=== PATIENT | male | born 1950 | race Hispanic/Latino ===

== ENCOUNTER → 2019-06-14 | Outpatient (CLI) | payer MEDICARE | END | disposition home or self-care (01) | LOC: RAH 09:44 | PROVIDERS: ATTEND Internal Medicine | DX: I35.8 Other nonrheumatic aortic valve disorders (principal) | CPT/HCPCS: 93306 ==

== ENCOUNTER → 2021-03-06 | Outpatient (CLI) | payer MEDICARE | END | disposition home or self-care (01) | LOC: RAH 11:27 | PROVIDERS: ATTEND Internal Medicine | DX: R60.0 Localized edema (principal); N50.89 Other specified disorders of the male genital organs; N43.3 Hydrocele, unspecified; I86.1 Scrotal varices | CPT/HCPCS: 76870 ==

== ENCOUNTER 2024-02-16 07:18 | Emergency (ER) | payer MEDICARE ==
[~2024-02-16] VITALS: Ht 175.3 cm; Wt 77.1 kg
[2024-02-16 08:08] LABS: BASOPHILS # (AUTO) 0.03 K/uL (0.00-0.20); BASOPHILS % (AUTO) 0.4 % (0.0-5.0); EOSINOPHILS # (AUTO) 0.47 K/uL (0.00-0.70); EOSINOPHILS % (AUTO) 6.7 % (0.0-8.0); HEMATOCRIT 34.9 % (42-54); IMMATURE GRANULOCYTE ABSOLUTE 0.05 K/uL (0-1); LYMPHOCYTES # (AUTO) 1.4 K/uL (1.0-4.8); MEAN CORPUSCULAR HEMOGLOBIN 30.1 pg (27.0-33.0); MEAN CORPUSCULAR HGB CONC 33.2 g/dL (32.0-36.0); MEAN CORPUSCULAR VOLUME 90.6 fL (79-99); MONOCYTES # (AUTO) 0.6 K/uL (0.1-1.0); MONOCYTES % (AUTO) 8.9 % (3.0-13.0); NEUTROPHILS # (AUTO) 4.5 K/uL (1.8-7.7); NEUTROPHILS % (AUTO) 63.3 % (40.0-77.0); PLATELET COUNT (AUTO) 293 K/uL (130-400); RED BLOOD CELL COUNT(AUTO) 3.85 MIL/uL (4.50-6.20); RED CELL DISTRIBUTION WIDTH 13.6 % (11.0-15.5); WHITE BLOOD COUNT (AUTO) 7.1 K/uL (4.8-10.8)
[2024-02-16 08:19] LABS: CREATININE 1.4 mg/dL (0.5-1.3)
[2024-02-16 08:24] LABS: ALBUMIN 3.5 g/dL (3.5-5.0); BILIRUBIN,TOTAL 0.4 mg/dL (0.2-1.0); TOTAL PROTEIN, SERUM 7.6 g/dL (6.0-8.3)
[2024-02-16 13:55] LABS: APPEARANCE,URINE CLEAR (CLEAR); BILIRUBIN,URINE NEGATIVE (NEGATIVE); COLOR,URINE LIGHT-YELLOW (YELLOW); GLUCOSE, URINE (UA) NEGATIVE (NEGATIVE); KETONES,URINE NEGATIVE (NEGATIVE); LEUKOCYTE ESTERASE ,URINE NEGATIVE Leu/uL (NEGATIVE); NITRATE,URINE NEGATIVE (NEGATIVE); OCCULT BLOOD,URINE NEGATIVE (NEGATIVE); PROTEIN,URINE NEGATIVE (NEGATIVE); UROBILINOGEN,URINE 0.2 mg/dL (0.2-1.0)
[2024-02-16 14:23] LABS: ADD UA MICROSCOPIC NO
[2024-02-16 14:52] VITALS: BP 150/60; PULSE 53; RESP 16; O2SAT 99
== END 2024-02-16 15:26 | disposition home or self-care (01) ==
LOC: EDH 07:18
DX: G30.9 Alzheimer's disease, unspecified (principal); F02.80 Dementia in other diseases classified elsewhere, unspecified severity, without behavioral disturbance, psychotic disturbance, mood disturbance, and anxiety; E11.9 Type 2 diabetes mellitus without complications; I10 Essential (primary) hypertension; Z88.0 Allergy status to penicillin
CPT/HCPCS: 36415; 70450; 72125; 73030; 73522; 80053; 81003; 85025

== ENCOUNTER 2024-09-28 10:03 | Emergency (ER) | payer MEDICARE ==
[~2024-09-28] VITALS: Ht 170.2 cm; Wt 72.6 kg
--- NOTE | 2024-09-28 10:29 | ERN ---
General Chief Complaint: Abdominal Pain Stated Complaint: ABDOMINAL PAIN Time Seen by MD: 10:05 History of Present Illness Initial Comments 74-year-old male with history of Alzheimer's presents to the via EMS for evaluation of right lower abdominal pain onset today. Patient was sent from [facility]. Patient is a poor historian. Allergies: Coded Allergies: Penicillins (Unverified Allergy, Unknown, 02/12/24) Past Medical History Past Medical History: Dementia, Diabetes-Type II, Hypertension, Other Medical History Other: ALZHEIMERS Past Surgical History: Unknown ROS Dictation Constitutional: Negative for fever,chills, and weight loss Eyes: Negative for injury, pain,redness, and discharge ENT: Negative for injury,pain or swelling Cardiovascular: Negative for chest pain, palpitations, and edema Respiratory: Negative for shortness of breath, cough, and wheezing, Abdomen/GI: Positive for abdominal pain negative for nausea, vomiting, diarrhea, and constipation Back: Negative for injury and pain : Negative for injury, bleeding and discharge MS/Extremity: Negative for injury and deformity Skin: Negative for rash, and discoloration Physical Exam Physical Exam Dictation General: awake, alert, NAD Head/Face: Normocephalic, atraumatic Eyes: PERRL, EOMI, vision at baseline ENT: oral cavity clear, TMs clear, no signs of infection Neck: Trachea midline, supple, no nuchal rigidity Cardiovascular: RRR, normal S1/S2, No MRGs, no JVD Respiratory: CTAB, no respiratory distress, No rales or wheezes Abdomen: Soft, low abdominal tenderness, non-distended, normal bowel sounds, no guarding or rebound. Skin: Warm, dry, normal turgor, no rash MS/Extremity: Pulses equal, no cyanosis, neurovascular intact, FROM Results Laboratory and Microbiology Lab and Micro Result Laboratory Tests Test 09/28/24 10:42 09/28/24 12:47 White Blood Count 5.2 K/uL (4.8-10.8) Red Blood Count 3.92 MIL/uL (4.50-6.20) L Hemoglobin 11.8 g/dL (14.0-18.0) L Hematocrit 35.5 % (42-54) L Mean Corpuscular Volume 90.6 fL (79-99) Mean Corpuscular Hemoglobin 30.1 pg (27.0-33.0) Mean Corpuscular Hemoglobin Concent 33.2 g/dL (32.0-36.0) Red Cell Distribution Width 14.0 % (11.0-15.5) Platelet Count 214 K/uL (130-400) Mean Platelet Volume 10.1 fL (7.5-10.5) Immature Granulocyte % (Auto) 0.2 % (0-1) Neutrophils (%) (Auto) 49.2 % (40.0-77.0) Lymphocytes (%) (Auto) 31.3 % (21.0-51.0) Monocytes (%) (Auto) 8.1 % (3.0-13.0) Eosinophils (%) (Auto) 10.6 % (0.0-8.0) H Basophils (%) (Auto) 0.6 % (0.0-5.0) Neutrophils # (Auto) 2.6 K/uL (1.8-7.7) Lymphocytes # (Auto) 1.6 K/uL (1.0-4.8) Monocytes # (Auto) 0.4 K/uL (0.1-1.0) Eosinophils # (Auto) 0.55 K/uL (0.00-0.70) Basophils # (Auto) 0.03 K/uL (0.00-0.20) Absolute Immature Granulocyte (auto 0.01 K/uL (0-1) Nucleated Red Blood Cells 0.0 % (0.0-0.19) Sodium Level 144 mmol/L (136-145) Potassium Level 4.3 mmol/L (3.5-5.1) Chloride Level 105 mmol/L (101-111) Carbon Dioxide Level 32 mmol/L (21-32) Blood Urea Nitrogen 17 mg/dL (7-18) Creatinine 1.3 mg/dL (0.5-1.3) Glomerular Filtration Rate Calc 57 mL/min (>90) Random Glucose 90 mg/dL (70-105) Total Calcium 9.2 mg/dL (8.5-10.1) Total Bilirubin 0.5 mg/dL (0.2-1.0) Aspartate Amino Transf (AST/SGOT) 12 U/L (10-37) Alanine Aminotransferase (ALT/SGPT) 11 U/L (12-78) L Alkaline Phosphatase 57 U/L (50-136) Total Creatine Kinase 45 U/L (21-232) # Troponin I High Sensitivity 11 ng/L (4-75) Total Protein 7.1 g/dL (6.0-8.3) Albumin 3.8 g/dL (3.5-5.0) Lipase 38 U/L (16-77) Urine Color COLORLESS (YELLOW) Urine Appearance CLEAR (CLEAR) Urine pH 6.5 (5.0-8.0) Urine Specific [place] 1.008 (1.001-1.031) Urine Protein NEGATIVE mg/dL (NEGATIVE) Urine Glucose (UA) NEGATIVE mg/dL (NEGATIVE) Urine Ketones NEGATIVE mg/dL (NEGATIVE) Urine Occult Blood NEGATIVE (NEGATIVE) Urine Nitrate NEGATIVE (NEGATIVE) Urine Bilirubin NEGATIVE mg/dL (NEGATIVE) Urine Urobilinogen 0.2 mg/dL (0.2-1.0) Urine Leukocyte Esterase NEGATIVE Mk/uL Labs Reviewed?: Yes EKG/XRAY/US/CT/MRI EKG Comment EKG 09/28/2024 time 10:37 a.m. ventricular rate 50, sinus rhythm, ventricular premature complex, prolonged MO interval, inferior infarct old, anterior infarct old. No STEMI MDM MDM: Differential diagnosis: Abdominal pain constipation Previous outside records reviewed: Old ER visits. Need for hospitalization: Patient does not meet criteria for hospitalization. Need for emergency major/minor surgery: No Patient's prior external medical records from other ER visits were reviewed by me as indicated. Prior testing and results from previous visits were reviewed. Prior tests were taken into account with medical decision making and resource utilization, independent historian/historians were used to obtain complete medical history. I independently interpreted the test that were performed, results were reviewed by me and considered findings on radiology if ordered. Medical management and examination interpretation discussions were had by me with other qualified healthcare professionals as indicated for the patient's care. Family reports patient has history of constipation but mentioned that patient had a bowel movement here at the ED since he is on lactulose. ED Course Orders Procedure Category Date Status Time Cbc With Differential LAB 09/28/24 Complete 10:23 Comprehensive LAB 09/28/24 Complete Metabolic Panel 10:23 Troponin I High LAB 09/28/24 Complete Sensitivity 10:23 Urinalysis Profile LAB 09/28/24 Complete 10:23 12 Lead Ekg Tracing- EKG 09/28/24 Complete Technical 10:23 Lactated Ringers PHA 09/28/24 Complete 1000ml (Lactated 10:30 Ondansetron 4mg Inj PHA 09/28/24 Complete (Zofran 4mg Inj) 10:30 Pantoprazole 40mg Inj PHA 09/28/24 Complete (Protonix 40mg Inj 10:30 Creatine Kinase, Total LAB 09/28/24 Complete 10:23 Lipase LAB 09/28/24 Complete 10:23 Current Medications Medications (Trade) Dose Ordered Sig/Margarito Route PRN Reason Start Time Stop Time Status Last Admin Dose Admin Lactated Ringer's 1,000 ml @ 0 mls/hr ONCE ONCE IV 09/28/24 10:30 09/28/24 10:31 DC 09/28/24 11:11 Ondansetron HCl (zoFRAN 4MG INJ) 4 mg ONCE ONCE IVP 09/28/24 10:30 09/28/24 10:31 DC 09/28/24 11:10 Pantoprazole Sodium (PROTonix 40MG INJ) 40 mg ONCE ONCE IVP 09/28/24 10:30 09/28/24 10:31 DC 09/28/24 11:10 Vital Signs Date Time Temp Pulse Resp B/P (MAP) Pulse Ox O2 Delivery O2 Flow Rate FiO2 09/28/24 13:18 98.2 77 20 145/65 100 Room Air* 0 09/28/24 12:20 98.4 71 20 150/66 100 Room Air* 0 09/28/24 11:15 98.1 68 20 152/57 100 Room Air* 0 09/28/24 10:05 98.6 66 17 157/87 96 Room Air 0 HEART Score Response (Comments) Value History: Low suspicion (0) 0 EKG: Normal 0 Age: > 65yrs (+2) 2 Risk Factors: 1-2 risk factors (+1) 1 Initial Troponin: Normal limit (0) 0 HEART Score Risk: Low Risk for MACE (1-3) Total 3 DX & DISP Disposition: Discharge Departure Impression: Primary Impression: Constipation Condition: Stable Additional Instructions: FOLLOW-UP WITH PRIMARY CARE PROVIDER IN 1 TO 2 DAYS. TAKE MEDICATIONS DIRECTED HERE IN THE EMERGENCY ROOM. OKAY TO CONTINUE HOME MEDICATIONS UNLESS OTHERWISE DISCUSSED DURING YOUR VISIT IN THE EMERGENCY ROOM TODAY. RETURN TO YOUR NEAREST EMERGENCY ROOM IF SYMPTOMS WORSEN OR IF THERE IS NO IMPROVEMENT. CALL 911 IF YOU NEED IMMEDIATE ASSISTANCE. TAKE TYLENOL [id number] NEEDED AND IF NO CONTRAINDICATIONS ARE PRESENT. INCREASE ORAL HYDRATION. A WOUND CULTURE OR URINE CULTURE WAS ORDERED HERE IN THE EMERGENCY ROOM DEPARTMENT PLEASE FOLLOW-UP WITH PRIMARY CARE PROVIDER AND ADVISE THEM TO GET REPEAT PORTS FROM OUR FACILITY. IF YOU HAD ANY RAVI WRAP/SPLINTS THAT WERE APPLIED HERE, PLEASE DO NOT REMOVE THEM UNTIL YOU SEE YOUR PRIMARY CARE OR SPECIALTY. Referrals: Referrals: YORDAN VENEGAS (PCP) Time of Disposition: 13:09 I have reviewed, & agreed with my scribe's, documentation. (Entered by Dave Colvin, acting as a scribe for Dr. Da Silva) I personally scribed for BEBE DA SILVA MD (TOMÁS) on 09/28/24 at 10:29. Electronically submitted by Dave Colvin ([employer]). I personally scribed for BEBE DA SILVA MD (TOMÁS) on 09/28/24 at 11:28. Electronically submitted by Dave Colvin ([employer]). I personally scribed for BEBE DA SILVA MD (TOMÁS) on 09/28/24 at 13:10. Electronically submitted by Dave Colvin ([employer]). BEBE DA SILVA MD Sep 28, 2024 10:29
[2024-09-28 10:49] LABS: BASOPHILS # (AUTO) 0.03 K/uL (0.00-0.20); BASOPHILS % (AUTO) 0.6 % (0.0-5.0); EOSINOPHILS # (AUTO) 0.55 K/uL (0.00-0.70); EOSINOPHILS % (AUTO) 10.6 % (0.0-8.0); HEMATOCRIT 35.5 % (42-54); IMMATURE GRANULOCYTE ABSOLUTE 0.01 K/uL (0-1); LYMPHOCYTES # (AUTO) 1.6 K/uL (1.0-4.8); LYMPHOCYTES % (AUTO) 31.3 % (21.0-51.0); MEAN CORPUSCULAR HEMOGLOBIN 30.1 pg (27.0-33.0); MEAN CORPUSCULAR HGB CONC 33.2 g/dL (32.0-36.0); MEAN CORPUSCULAR VOLUME 90.6 fL (79-99); MONOCYTES # (AUTO) 0.4 K/uL (0.1-1.0); MONOCYTES % (AUTO) 8.1 % (3.0-13.0); NEUTROPHILS # (AUTO) 2.6 K/uL (1.8-7.7); NEUTROPHILS % (AUTO) 49.2 % (40.0-77.0); PLATELET COUNT (AUTO) 214 K/uL (130-400); RED BLOOD CELL COUNT(AUTO) 3.92 MIL/uL (4.50-6.20); WHITE BLOOD COUNT (AUTO) 5.2 K/uL (4.8-10.8)
[2024-09-28 10:59] LABS: CREATININE 1.3 mg/dL (0.5-1.3); POTASSIUM 4.3 mmol/L (3.5-5.1)
[2024-09-28 11:04] LABS: ALBUMIN 3.8 g/dL (3.5-5.0); BILIRUBIN,TOTAL 0.5 mg/dL (0.2-1.0); TOTAL PROTEIN, SERUM 7.1 g/dL (6.0-8.3)
[2024-09-28] MEDS: PANTOPrazole 40 MG/VIAL IVP ONE (11:10)
[2024-09-28] MEDS: ondanSETRON 4MG INJ IVP ONE (11:10)
[2024-09-28] MEDS: LACTATED RINGERS 1000ML 1,000 ML IV ONE (11:11)
--- NOTE | 2024-09-28 12:37 | EKG ---
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
[2024-09-28 13:05] LABS: APPEARANCE,URINE CLEAR (CLEAR); BILIRUBIN,URINE NEGATIVE (NEGATIVE); COLOR,URINE COLORLESS (YELLOW); GLUCOSE, URINE (UA) NEGATIVE (NEGATIVE); KETONES,URINE NEGATIVE (NEGATIVE); LEUKOCYTE ESTERASE ,URINE NEGATIVE Leu/uL (NEGATIVE); NITRATE,URINE NEGATIVE (NEGATIVE); OCCULT BLOOD,URINE NEGATIVE (NEGATIVE); PH,URINE 6.5 (5.0-8.0); PROTEIN,URINE NEGATIVE (NEGATIVE); UROBILINOGEN,URINE 0.2 mg/dL (0.2-1.0)
[2024-09-28 13:06] LABS: ADD UA MICROSCOPIC NO
[2024-09-28 13:18] VITALS: BP 145/65; PULSE 77; RESP 20; TEMP 98.2; O2SAT 100
== END 2024-09-28 13:31 | disposition home or self-care (01) ==
LOC: EDH 10:03
DX: K59.00 Constipation, unspecified (principal); F02.80 Dementia in other diseases classified elsewhere, unspecified severity, without behavioral disturbance, psychotic disturbance, mood disturbance, and anxiety; E11.9 Type 2 diabetes mellitus without complications; I10 Essential (primary) hypertension; Z88.0 Allergy status to penicillin
CPT/HCPCS: 99284; 96374; 96375; 82550; 84484; 80053; 83690; 85025; 81003; 36415; 93005; J7120; J2405; J2470

== ENCOUNTER → 2025-02-21 | Outpatient (CLI) | payer MEDICARE ==
--- NOTE | 2025-02-21 12:07 | HMCIMG ---
US ABDOMINAL COMPLETE HISTORY: Abdominal pain COMPARISON: None TECHNIQUE: Multiple transverse and longitudinal ultrasound images of the abdomen were obtained. FINDINGS: There is infrarenal abdominal aortic aneurysm measuring 2.8 x 3.4 x 2.8 cm. Abdominal aorta and inferior vena cava are unremarkable. The study is limited due to overlying bowel gas. Pancreas is not well seen. Liver measured 12.9 cm. No gallstone is seen. Common duct measures 5 mm. No evidence of gallbladder wall thickening is seen. Both kidneys are seen. Right kidney measures 9.8 x 4.2 x 3.5 cm. Left kidney measures 9.8 x 4.8 x 4.8 cm. No hydronephrosis is seen of the both kidneys. The spleen is grossly unremarkable. IMPRESSION: 1. No gallstone or ductal dilatation is seen. 2. No hydronephrosis is seen. 3. There is infrarenal abdominal aortic aneurysm measuring 2.8 x 3.4 x 2.8 cm.
== END | disposition home or self-care (01) ==
LOC: RAH 10:02
PROVIDERS: ATTEND Family Medicine
DX: I71.43 Infrarenal abdominal aortic aneurysm, without rupture (principal); K76.89 Other specified diseases of liver; R10.84 Generalized abdominal pain
CPT/HCPCS: 76700

== ENCOUNTER 2025-03-01 14:23 | Observation (INO) | payer MEDICARE ==
[~2025-03-01] VITALS: Ht 157.5 cm; Wt 80.7 kg
--- NOTE | 2025-03-01 14:45 | EKG ---
[facility] Test Date: 2025-03-01 Test Time: 14:42:25 Pat Name: JEFF GOMEZ Department: 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: [id number] : 1950 Requested By: BEBE BEAR Order Number: [id number] Reading MD: Dee Covarrubias Measurements Intervals [place] Rate: 53 P: 139 IA: 264 QRS: 121 QRSD: 111 T: 40 QT: 458 QTc: 422 Interpretive Statements Sinus or ectopic atrial rhythm Ventricular premature complex Prolonged IA interval Low voltage, precordial leads Probable anteroseptal infarct, old Compared to ECG 09/28/2024 10:37:49 Ectopic atrial rhythm now present Low QRS voltage now present Sinus rhythm no longer present Myocardial infarct finding still present Electronically Signed On 03-04-2025 09:32:29 CDT by Dee Covarrubias Please click the below link to view image of tracing.
--- NOTE | 2025-03-01 14:51 | ERN ---
General Chief Complaint: Mechanical Fall Stated Complaint: FALL Time Seen by MD: 14:27 Source: patient, EMS History of Present Illness Initial Comments This is a 74-year-old male coming in to be evaluated after he was found in the floor. Per EMS patient has a history of Alzheimer's and was found the floor earlier today. Patient states that he does have elbow pain otherwise un remarkable. He is a poor historian secondary to Alzheimer's. Allergies: Coded Allergies: Penicillins (Unverified Allergy, Unknown, 02/12/24) Past Medical History Past Medical History: Dementia, Diabetes-Type II, Hypertension Medical History Other: ALZHEIMERS Past Surgical History: Unknown ROS Dictation Limited due to the dementia Physical Exam Physical Exam Dictation VITAL SIGNS: Reviewed. GENERAL APPEARANCE: Alert, oriented x3, no acute distress, obese. HEAD AND FACE: Non-traumatic. EYES: PERRL, pink conjunctivas, eyelid no trauma, anterior chamber clear. EARS: Pinnas intact and no signs of trauma or erythema. Ear canals clear and no discharge. TMs no erythema. NOSE: No discharge, no bleeding. OROPHARYNX: Mouth normal, teeth no caries, tongue pink. Pharynx clear, no erythema. Tonsils no exudates, no abscesses noted. Mucous membrane moist. NECK: Supple, non-tender, no thyromegaly, no masses, no JVD, no bruits. BREAST: Deferred. CHEST: No tenderness, no crepitus, no paradoxical movement, no retractions. LUNGS: Clear, well-ventilated, symmetric, no rales, no wheezing, no rhonchi, no stridor, good breath sounds bilaterally. HEART: Regular rate, regular rhythm, no murmur, no gallops. VASCULAR: No peripheral edema. ABDOMEN: Soft, positive bowel sounds, nondistended, no guarding, nontender, no rebound, no masses no hepatomegaly, no splenomegaly, no Gottlieb's sign, no hernias. RECTAL: Deferred. GENITAL: Deferred. NEUROLOGICAL: Normal speech, gross motor function intact, gross sensory function intact. MUSCULOSKELETAL: Neck nontender, full range of motion, back nontender, full range of motion. EXTREMITIES: Nontender, full range of motion. SKIN: Color pink, dry, no turgor, no rash, no lacerations, no abrasions, no contusions. LYMPHATICS: Deferred. Results Laboratory and Microbiology Lab and Micro Result Laboratory Tests Test 03/01/25 14:55 White Blood Count 5.4 K/uL (4.8-10.8) Red Blood Count 3.86 MIL/uL (4.50-6.20) L Hemoglobin 11.7 g/dL (14.0-18.0) L Hematocrit 36.6 % (42-54) L Mean Corpuscular Volume 94.8 fL (79-99) Mean Corpuscular Hemoglobin 30.3 pg (27.0-33.0) Mean Corpuscular Hemoglobin Concent 32.0 g/dL (32.0-36.0) Red Cell Distribution Width 14.3 % (11.0-15.5) Platelet Count 232 K/uL (130-400) Mean Platelet Volume 10.9 fL (7.5-10.5) H Immature Granulocyte % (Auto) 0.2 % (0-1) Neutrophils (%) (Auto) 48.8 % (40.0-77.0) Lymphocytes (%) (Auto) 32.5 % (21.0-51.0) Monocytes (%) (Auto) 8.7 % (3.0-13.0) Eosinophils (%) (Auto) 8.9 % (0.0-8.0) H Basophils (%) (Auto) 0.9 % (0.0-5.0) Neutrophils # (Auto) 2.6 K/uL (1.8-7.7) Lymphocytes # (Auto) 1.8 K/uL (1.0-4.8) Monocytes # (Auto) 0.5 K/uL (0.1-1.0) Eosinophils # (Auto) 0.48 K/uL (0.00-0.70) Basophils # (Auto) 0.05 K/uL (0.00-0.20) Absolute Immature Granulocyte (auto 0.01 K/uL (0-1) Nucleated Red Blood Cells 0.0 % (0.0-0.19) Prothrombin Time 10.7 SEC (9.6-11.6) Prothromb Time International Ratio 1.01 (0.85-1.15) Activated Partial Thromboplast Time 24.0 SEC (26.3-35.5) L Sodium Level 145 mmol/L (136-145) Potassium Level 4.5 mmol/L (3.5-5.1) Chloride Level 106 mmol/L (101-111) Carbon Dioxide Level 32 mmol/L (21-32) Blood Urea Nitrogen 21 mg/dL (7-18) H Creatinine 1.5 mg/dL (0.5-1.3) H Glomerular Filtration Rate Calc 48 mL/min (>90) Random Glucose 105 mg/dL (70-105) Total Calcium 9.4 mg/dL (8.5-10.1) Magnesium Level 2.10 mg/dL (1.80-2.40) Total Creatine Kinase 84 U/L (21-232) # Troponin I High Sensitivity 8 ng/L (4-75) B-Type Natriuretic Peptide 70 pg/mL (0-100) Labs Reviewed?: Yes EKG/XRAY/US/CT/MRI EKG Comment 03/01/2025 time 2:42 p.m. Ventricular rate [address] [place] [address] wave elevation or depression X-RAY Comment IMAGING REPORT Signed PATIENT: JEFF GOMEZ MR#: [id number] : 1950 SEX: M AGE: 74 LOCATION: [facility] ORDER 33 STATUS: REG REPORT#: [id number] SERVICE 31 REASON: SYNCOPE ORDERING PHYSICIAN: BEBE BEAR MD PROCEDURE: CXR1VW - CHEST 1VW PORTABLE CHEST RADIOGRAPH INDICATION: SYNCOPE COMPARISON: 02/12/2024 FINDINGS: Shallow inspiration. Heart size is normal. The pulmonary vascularity and julissa appear normal. No abnormal pulmonary parenchymal opacity or consolidation identified. No significant pleural effusion noted. No pneumothorax detected. IMPRESSION: Shallow inspiration without radiographic evidence for any acute cardiopulmonary process. DICTATED BY: IRVIN COLES MD DATE: 03/01/251500 ELECTRONICALLY SIGNED BY: IRVIN COLES MD DATE: 03/01/251503 CT Scan Comment [address] [place] [address], [place] [address] IMAGING REPORT Signed PATIENT: JEFF GOMEZ MR#: [id number] : 1950 SEX: M AGE: 74 LOCATION: [facility] ORDER 51 STATUS: REG ER REPORT#: [id number] SERVICE 1451 REASON: syncope ORDERING PHYSICIAN: BEBE BEAR MD PROCEDURE: HEAD WO - CT HEAD/BRAIN W/O CONTRAST CT HEAD WITHOUT CONTRAST INDICATION: Syncope TECHNIQUE: Noncontrast axial helical CT images from the vertex through the skull base using 5 mm slice thickness without contrast material. Coronal and sagittal reconstructions were also included. Dose reduction techniques was used using integrated, automated and adaptive dose reduction exposure control. CT was performed with one or more of the following dose reduction techniques: Automated exposure control, adjustment of the mA and/or kV according to patient size, or use of iterative reconstruction technique. COMPARISON: 02/16/24 FINDINGS: Scattered and coalescent subcortical and periventricular white matter low attenuating areas likely represent residual of chronic small vessel arteriopathy and/or remote vascular insult. Generalized mild cerebral cortical atrophy is present.. No evidence for abnormal extra-axial fluid collections or masses. The ventricles and sulci are normal in size and configuration. No evidence for intracranial parenchymal, epidural, or subdural hemorrhage, mass effect or midline shift. The dillon-white matter differentiation is well preserved. No secondary evidence to suggest acute ischemia. Mild calcific plaque is present along the murray of the cavernous segments of both internal carotid arteries. The brainstem and cerebellum appear normal. The visualized orbits appear unremarkable. The visible paranasal sinuses and mastoid air cells are clear. The calvarium appears normal. IMPRESSION: Chronic white matter ischemic changes, mild brain atrophy, and arteriosclerotic disease as described, without acute component. DICTATED BY: IRVIN COLES MD DATE: 03/01/251603 ELECTRONICALLY SIGNED BY: IRVIN COLES MD DATE: 03/01/25 160 MDM MDM: Differential diagnosis: Copy, fall, history of Alzheimer's, Rationale: Tests considered and ordered secondary to shared decision making inc lude: Previous outside records reviewed: Old ER visits. Risk of complication and/or morbidity or mortality of patient management: None Medications-Per medication reconciliation Need for hospitalization: Patient does meet criteria for hospitalization. Need for emergency major/minor surgery: No There are no social concerns with this patient. Prescription drug management Prescriptions will include symptomatic care Patient's prior external medical records from other ER visits were reviewed by me as indicated. Prior testing and results from previous visits were reviewed. Prior tests were taken into account with medical decision making and resource utilization, independent historian/historians were used to obtain complete medical history. I independently interpreted the test that were performed, results were reviewed by me and considered findings on radiology if ordered. Medical management and examination interpretation discussions were had by me with other qualified healthcare professionals as indicated for the patient's care. Patient will be admitted under the care of hospitalist group for ongoing management of syncope and collapse with the EKG changes. ED Course Orders Procedure Category Date Status Time Cbc With Differential LAB 03/01/25 Complete 14:32 Prothrombin Time With LAB 03/01/25 Complete INR 14:32 B-Type Natriuretic LAB 03/01/25 Complete Peptide 14:32 Chest 1vw RAD 03/01/25 Resulted 14:32 12 Lead Ekg Tracing- EKG 03/01/25 Complete Technical 14:32 Magnesium LAB 03/01/25 Complete 14:32 Creatine Kinase, Total LAB 03/01/25 Complete 14:32 Troponin I High LAB 03/01/25 Complete Sensitivity 14:32 Urinalysis Profile LAB 03/01/25 Logged 14:32 Partial LAB 03/01/25 Complete Thromboplastin Time 14:32 Basic Metabolic Panel LAB 03/01/25 Complete 14:32 Ct Head/Brain W/O CT 03/01/25 Resulted Contrast 14:51 Vital Signs Date Time Temp Pulse Resp B/P (MAP) Pulse Ox O2 Delivery O2 Flow Rate FiO2 03/01/25 15:15 97.9 52 16 153/57 100 Room Air* 0 21 03/01/25 14:24 98.1 62 16 153/77 99 Room Air 0 DX & DISP Disposition: Inpatient Decision to Admit Time: 16:35 Departure Impression: Primary Impression: Syncope and collapse Additional Impression: Acute electrocardiogram changes Condition: Stable Referrals: YORDAN VENEGAS (PCP) BEBE BEAR MD Mar 01, 2025 14:51
--- NOTE | 2025-03-01 15:04 | HMCIMG ---
PORTABLE CHEST RADIOGRAPH INDICATION: SYNCOPE COMPARISON: 02/12/2024 FINDINGS: Shallow inspiration. Heart size is normal. The pulmonary vascularity and julissa appear normal. No abnormal pulmonary parenchymal opacity or consolidation identified. No significant pleural effusion noted. No pneumothorax detected. IMPRESSION: Shallow inspiration without radiographic evidence for any acute cardiopulmonary process.
[2025-03-01 15:07] LABS: BASOPHILS # (AUTO) 0.05 K/uL (0.00-0.20); BASOPHILS % (AUTO) 0.9 % (0.0-5.0); EOSINOPHILS # (AUTO) 0.48 K/uL (0.00-0.70); EOSINOPHILS % (AUTO) 8.9 % (0.0-8.0); HEMATOCRIT 36.6 % (42-54); IMMATURE GRANULOCYTE ABSOLUTE 0.01 K/uL (0-1); LYMPHOCYTES # (AUTO) 1.8 K/uL (1.0-4.8); LYMPHOCYTES % (AUTO) 32.5 % (21.0-51.0); MEAN CORPUSCULAR HEMOGLOBIN 30.3 pg (27.0-33.0); MEAN CORPUSCULAR VOLUME 94.8 fL (79-99); MONOCYTES # (AUTO) 0.5 K/uL (0.1-1.0); MONOCYTES % (AUTO) 8.7 % (3.0-13.0); NEUTROPHILS # (AUTO) 2.6 K/uL (1.8-7.7); NEUTROPHILS % (AUTO) 48.8 % (40.0-77.0); PLATELET COUNT (AUTO) 232 K/uL (130-400); RED BLOOD CELL COUNT(AUTO) 3.86 MIL/uL (4.50-6.20); RED CELL DISTRIBUTION WIDTH 14.3 % (11.0-15.5); WHITE BLOOD COUNT (AUTO) 5.4 K/uL (4.8-10.8)
[2025-03-01 15:17] LABS: INR 1.01 (0.85-1.15); PROTHROMBIN TIME 10.7 SEC (9.6-11.6)
[2025-03-01 15:22] LABS: CREATININE 1.5 mg/dL (0.5-1.3); POTASSIUM 4.5 mmol/L (3.5-5.1)
[2025-03-01 15:25] LABS: B-TYPE NATRIURETIC PEPTIDE 70 pg/mL (0-100)
[2025-03-01 15:27] LABS: MAGNESIUM 2.1 mg/dL (1.80-2.40)
--- NOTE | 2025-03-01 16:07 | HMCIMG ---
CT HEAD WITHOUT CONTRAST INDICATION: Syncope TECHNIQUE: Noncontrast axial helical CT images from the vertex through the skull base using 5 mm slice thickness without contrast material. Coronal and sagittal reconstructions were also included. Dose reduction techniques was used using integrated, automated and adaptive dose reduction exposure control. CT was performed with one or more of the following dose reduction techniques: Automated exposure control, adjustment of the mA and/or kV according to patient size, or use of iterative reconstruction technique. COMPARISON: 02/16/24 FINDINGS: Scattered and coalescent subcortical and periventricular white matter low attenuating areas likely represent residual of chronic small vessel arteriopathy and/or remote vascular insult. Generalized mild cerebral cortical atrophy is present.. No evidence for abnormal extra-axial fluid collections or masses. The ventricles and sulci are normal in size and configuration. No evidence for intracranial parenchymal, epidural, or subdural hemorrhage, mass effect or midline shift. The dillon-white matter differentiation is well preserved. No secondary evidence to suggest acute ischemia. Mild calcific plaque is present along the murray of the cavernous segments of both internal carotid arteries. The brainstem and cerebellum appear normal. The visualized orbits appear unremarkable. The visible paranasal sinuses and mastoid air cells are clear. The calvarium appears normal. IMPRESSION: Chronic white matter ischemic changes, mild brain atrophy, and arteriosclerotic disease as described, without acute component.
--- NOTE | 2025-03-01 16:50 | HP ---
[facility] HISTORY AND PHYSICAL Date of Service: Mar 01, 2025 Time of Service: 16:32 HISTORY OF PRESENT ILLNESS: [ ] admission date; 03/01/25 PCP; Levi Major chief complaints: Fall This is a 74-year-old male was brought in by EMS from [facility] apparently patient had a mechanical fall unwitnessed. Patient was found by staff and brought him to ED for further evaluation and treatment. During the course patient had an episode of heart rate 47-52 patient does have a history of cardiac as per son and his retail associate manager bilingual's knows about his heart rate. I explained to the son given to patient having a syncope episode he is being admitted for further workup. He was adamant that there is no need for patient to be admitted . The son Ryan Hoff refused further workup on this admission and he will take his father NANCI. REVIEW OF SYSTEMS a 14 point ROS obtained all relevant positive documented otherwise ROS negative. PAST MEDICAL HISTORY: [ ] Dementia diabetic type 2 hypertension Alzheimer's PAST SURGICAL HISTORY: [ ] Unknown limited due to Alzheimer's PAST SOCIAL HISTORY: [ ] Unknown FAMILY HISTORY: [ ] Noncontributory Coded Allergies: Penicillins (Unverified Allergy, Unknown, 02/12/24) PHYSICAL EXAM GENERAL APPEARANCE: The patient is awake, alert, and oriented, in no acute cardiopulmonary distress. NEUROLOGICAL: Cranial nerves II-XII grossly intact. Motor is 5/5 in bilateral upper and lower extremities proximal to distal. No sensory deficits. HEENT: Face is symmetric. Pupils are equal and reactive. Extraocular movements are intact. NECK: Supple. No JVD. No thyromegaly. No submental, submandibular, pre- /postauricular, occipital or supraclavicular lymphadenopathy. CHEST: Normal chest expansion. No Telemetry. LUNGS: Absence of any rales, rhonchi or any wheezing. CARDIOVASCULAR: Regular. S1 and S2 normal. No appreciable rubs, murmurs or gallops. ABDOMEN: Soft, nontender, and nondistended. There is no rebound, voluntary guarding, or rigidity. : Deferred. No Monteiro. EXTREMITIES: Non-edematous and not cyanotic. No clubbing. Good capillary refill. SKIN: No skin breakdown. Vital Sign (Last 24 Hours) 03/01/25 15:15 Temp 97.9 Pulse 52 Resp 16 B/P (MAP) 153/57 Pulse Ox 100 O2 Delivery Room Air* O2 Flow Rate 0 FiO2 21 LABS: Laboratory: Test 03/01/25 14:55 Range/Units White Blood Count 5.4 4.8-10.8 K/uL Red Blood Count 3.86 L 4.50-6.20 MIL/uL Hemoglobin 11.7 L 14.0-18.0 g/dL Hematocrit 36.6 L 42-54 % Mean Corpuscular Volume 94.8 79-99 fL Mean Corpuscular Hemoglobin 30.3 27.0-33.0 pg Mean Corpuscular Hemoglobin Concent 32.0 32.0-36.0 g/dL Red Cell Distribution Width 14.3 11.0-15.5 % Platelet Count 232 130-400 K/uL Mean Platelet Volume 10.9 H 7.5-10.5 fL Immature Granulocyte % (Auto) 0.2 0-1 % Neutrophils (%) (Auto) 48.8 40.0-77.0 % Lymphocytes (%) (Auto) 32.5 21.0-51.0 % Monocytes (%) (Auto) 8.7 3.0-13.0 % Eosinophils (%) (Auto) 8.9 H 0.0-8.0 % Basophils (%) (Auto) 0.9 0.0-5.0 % Neutrophils # (Auto) 2.6 1.8-7.7 K/uL Lymphocytes # (Auto) 1.8 1.0-4.8 K/uL Monocytes # (Auto) 0.5 0.1-1.0 K/uL Eosinophils # (Auto) 0.48 0.00-0.70 K/uL Basophils # (Auto) 0.05 0.00-0.20 K/uL Absolute Immature Granulocyte (auto 0.01 0-1 K/uL Nucleated Red Blood Cells 0.0 0.0-0.19 % Prothrombin Time 10.7 9.6-11.6 SEC Prothromb Time International Ratio 1.01 0.85-1.15 Activated Partial Thromboplast Time 24.0 L 26.3-35.5 SEC Sodium Level 145 136-145 mmol/L Potassium Level 4.5 3.5-5.1 mmol/L Chloride Level 106 101-111 mmol/L Carbon Dioxide Level 32 21-32 mmol/L Blood Urea Nitrogen 21 H 7-18 mg/dL Creatinine 1.5 H 0.5-1.3 mg/dL Glomerular Filtration Rate Calc 48 >90 mL/min Random Glucose 105 70-105 mg/dL Total Calcium 9.4 8.5-10.1 mg/dL Magnesium Level 2.10 1.80-2.40 mg/dL Total Creatine Kinase 84 # 21-232 U/L Troponin I High Sensitivity 8 4-75 ng/L B-Type Natriuretic Peptide 70 0-100 pg/mL DIAGNOSTICS / RADIOLOGY: [ ] REASON: syncope ORDERING PHYSICIAN: BEBE BEAR MD PROCEDURE: HEAD WO - CT HEAD/BRAIN W/O CONTRAST CT HEAD WITHOUT CONTRAST INDICATION: Syncope TECHNIQUE: Noncontrast axial helical CT images from the vertex through the skull base using 5 mm slice thickness without contrast material. Coronal and sagittal reconstructions were also included. Dose reduction techniques was used using integrated, automated and adaptive dose reduction exposure control. CT was performed with one or more of the following dose reduction techniques: Automated exposure control, adjustment of the mA and/or kV according to patient size, or use of iterative reconstruction technique. COMPARISON: 02/16/24 FINDINGS: Scattered and coalescent subcortical and periventricular white matter low attenuating areas likely represent residual of chronic small vessel arteriopathy and/or remote vascular insult. Generalized mild cerebral cortical atrophy is present.. No evidence for abnormal extra-axial fluid collections or masses. The ventricles and sulci are normal in size and configuration. No evidence for intracranial parenchymal, epidural, or subdural hemorrhage, mass effect or midline shift. The dillon-white matter differentiation is well preserved. No secondary evidence to suggest acute ischemia. Mild calcific plaque is present along the murray of the cavernous segments of both internal carotid arteries. The brainstem and cerebellum appear normal. The visualized orbits appear unremarkable. The visible paranasal sinuses and mastoid air cells are clear. The calvarium appears normal. IMPRESSION: Chronic white matter ischemic changes, mild brain atrophy, and arteriosclerotic disease as described, without acute component. DICTATED BY: IRVIN COLES MD DATE: 03/01/25 160 ELECTRONICALLY SIGNED BY: IRVIN COLES MD DATE: 03/01/25 1607 ASSESSMENT: Mechanical fall POA suspecting orthostatic hypotensive POA Suspecting Autonomic imbalance POA IZABELLA ATN POA Dehydration POA Alzheimer's POA HTN uncontrolled POA PLAN: LEFT AMA: PER SON REQUEST: NURY WISE POA Admit: Surgical medical with tele condition: Guarded Status: Full code IVF: NS 75 mL/hour Consultants retail associate manager bilingual's Test: Echo to evaluate LV function and carotid Doppler Labs cbc, cmp, mag+ TSH lipid panel A.c. HS with sliding scale. Replace electrolytes as needed as per protocol to keep potassium above 4.0 magnesium 2.0. Home medications pending to be reviewed by RN nurse. PRN: MEDICATIONS Tylenol 650 mg po every 4 hrs for fever zofran 4 mg IV every 6 hrs for n/v Hydralazine 5 mg IV every 4 hrs systolic pressure > 160 bowel regiment: lactulose 20 gm PO BID PRN constipation Pain management: Supportive measures: DVT ppx, GI ppx all questions answered time spent: > 35 min Supervising MD: Dr. Kearney c/d This document was generated in part using voice recognition software, occasional wrong word or sound alike substitutions may have occurred due to the inherent limitations of voice recognition software. Read the chart carefully and recog nize using context, where the substitutions have occurred. Although every effort was made to edit the content, waredresser and typing errors may occur ADVANCED CARE PLANNING 1. Which of the following were discussed? Hospice Care - Yes / No Therapeutic options - Yes / No Advance Directives - Yes / No Other discussions - 2. Discussed with who? 3. Voluntary nature of this service was explained to the patient? Yes / No 4. Amount of time spent - 5. Reviewed by Physician? (if this service was performed by NPP) Yes / No ATTESTATION BY PHYSICIAN I have seen and examined the patient. I reviewed the documentation, medical decision making, and treatment plan as noted by the mid-level provider above. I agree with the findings and plan of care. JESSE KEARNEY MD, ELIZABETH NP Mar 01, 2025 16:50
[2025-03-01] MEDS: 0.9%NACL 1000ML 1,000 ML IV SCH (16:54)
[2025-03-01] MEDS ORDERED: ondanSETRON 4MG INJ IVP PRN (17:00)
[2025-03-01] MEDS ORDERED: PoTASSium chloRIDE 20MEQ/100ML 100 ML IV PRN (17:00)
[2025-03-01] MEDS ORDERED: MAGNESIUM 2GM PREMIX 50ML 50 ML IV PRN (17:00)
[2025-03-01] MEDS ORDERED: LACTULOSE 20 GM/30 ML UDCUP PO PRN (17:00)
[2025-03-01] MEDS ORDERED: hydrALAZine 20MG/ML VIAL IV PRN (17:00)
[2025-03-01] MEDS ORDERED: PoTASSium chl 10% ELIXIR 20MEQ 20 MEQ/15 ML UDCUP PO PRN (17:00)
[2025-03-01] MEDS ORDERED: PoTASSium chloRIDE 20MEQ ER 20 MEQ ERTAB PO PRN (17:00)
[2025-03-01] MEDS ORDERED: acetaMINOPHEN 325 MG TAB PO PRN (17:00)
--- NOTE | 2025-03-01 17:41 | NUR ---
PT CRAWLED OUT OF BED WAS WALKING IN THE CRUZ, PT TRYING TO REMOVE IV AND WRIST BANDS, SON IN LAW AT BEDSIDE STATES PT WONDERS AT FACILITY, PT HAS HAD FALLS IN THE PAST WELL, RECOMMENDS WE GET SOME ONE TO WATCH PT. NOTIFIED CHARGE NURSE FALGUNI BAKER AND ENTRY LEVEL CHEMIST FALGUNI BAKER.
--- NOTE | 2025-03-01 18:58 | NUR ---
PER TELEPHONE COLLECTOR REPORT TO BE GIVEN AFTER CHANGE OF SHIFT.
[2025-03-01] MEDS: diazePAM 5 MG/ML 2 ML SYG IVP ONE (19:56)
[2025-03-01] MEDS: diazePAM 5 MG/ML 2 ML SYG ONE (19:57)
[2025-03-01 20:00] VITALS: BP 125/66; PULSE 57; RESP 18; TEMP 97.9; O2SAT 97
--- NOTE | 2025-03-01 20:00 | NUR ---
ADMISSION: PT BROUGHT UP FROM ER VIA WHEELCHAIR, NO FAMILY MEMBERS AT BEDSIDE. PT HAS HISTORY OF DEMENTIA, ALZHEIMER'S, HTN AND DM. PT IS ONLY ALERT TO NAME, ANXIOUS/RESTLESS AND NOT FOLLOWING COMMANDS. ATTEMPTED TO ASK QUESTIONS FOR ADMISSION, PT INFORMATION GATHERED FROM MEDICAL RECORD FROM [facility]. PLACED TELE# [id number] TO CHEST WALL, HR RATE-57. IV .SL TO LEFT FOREARM WRAPPED FOR PATIENT SAFETY. ATTEMPTING TO DO MAIL COURIER AND PT IS SHOWING AGGRESSIVE BEHAVIOR AND VERBALIZES TO LEAVE HIM ALONE. S/R UP X 3, BED ALARM IN PLACE. 1:1 SITTER AT BEDSIDE. SENIOR CARE MEDICATIONS ENTERED.
[2025-03-01] MEDS: INSULIN humuLIN R 100 UNIT/ML 3ML SQ SCH (21:00)
[2025-03-01] MEDS: FAMOTIDINE 20MG VIAL IV SCH (21:17)
[2025-03-01] MEDS ORDERED: RISE35TA12 PO (23:26)
[2025-03-01] MEDS ORDERED: SIMV-43 PO (23:26)
[2025-03-01] MEDS ORDERED: TRIAM15CRM TP (23:26)
[2025-03-01] MEDS ORDERED: SPIR25TA6 PO (23:26)
[2025-03-01] MEDS ORDERED: CLOT15CR23 TP (23:26)
[2025-03-01] MEDS ORDERED: LACT-441 PO (23:26)
[2025-03-01] MEDS ORDERED: LATA2.5D14 OP (23:26)
[2025-03-01] MEDS ORDERED: CARB15DR2 OP (23:26)
[2025-03-01] MEDS ORDERED: CYPR4TAB46 PO (23:26)
[2025-03-01] MEDS ORDERED: LISI20TA24 PO (23:26)
[2025-03-01] MEDS ORDERED: RIVA4.6T TP (23:26)
[2025-03-01] MEDS ORDERED: HYDR-3421 PO (23:26)
[2025-03-01] MEDS ORDERED: CHOL2000 PO (23:26)
[2025-03-02] VITALS: BP 145/89; PULSE 51; RESP 16; TEMP 97.6
--- NOTE | 2025-03-02 00:20 | NUR ---
COMBATIVE: 1:1 SITTER REPORTED PT WOKE UP BECAME AGGRESSIVE/COMBATIVE. PT PULLING AND ATTEMPTING TO TAKE OUT IV, PT ATTEMPTING TO GET OUT OF BED. PT ORIENTED TO TIME, PLACE, SITUATION AND RETURNED TO BED. S/R UP X 3, 1:1 SITTER AT BEDSIDE.
--- NOTE | 2025-03-02 01:15 | NUR ---
COMBATIVE/CONFUSED: 1:1 SITTER CALLING OUT FOR ASSISTANCE. PT COMBATIVE/CONFUSED. ATTEMPTING TO PULL OUT IV AND TORE OFF TELE MONITOR. PT WILL NOT ALLOW NURSING STAFF TO PUT TELE PACK BACK ON. PT ATTEMPTING TO GET OUT OF BED. PT ORIENTED TO ROOM, SURROUNDINGS AND PLACE. PT INFORMED HE FELL AT ASSISTED LIVING AND WAS BROUGHT TO HOSPITAL FOR EVALUATION. PT ORIENTED ONLY TO NAME, DOES NOT FOLLOW SIMPLE COMMANDS OR VOICES UNDERSTANDING. S/R UP X 3, 1:1 SITTER AT BEDSIDE.
[2025-03-02 04:03] VITALS: BP 142/68; PULSE 46; RESP 18; TEMP 97.6
[2025-03-02 08:00] VITALS: BP 136/78; PULSE 47; RESP 17; TEMP 97.6
[2025-03-02 08:32] VITALS: O2SAT 100
--- NOTE | 2025-03-02 08:50 | PN ---
[facility] PROGRESS NOTE Date of Service: Mar 02, 2025 Time of Service: 08:49 SUBJECTIVE: [ ] admission date; 03/01/25 PCP; Levi Major chief complaints: Fall This is a 74-year-old male was brought in by EMS from [facility] apparently patient had a mechanical fall unwitnessed. Patient was found by staff and brought him to ED for further evaluation and treatment. During the course patient had an episode of heart rate 47-52 patient does have a history of cardiac as per son and his case worker's knows about his heart rate. I explained to the son given to patient having a syncope episode he is being admitted for further workup. He was adamant that there is no need for patient to be admitted . The son Ryan Hoff refused further workup on this admission and he will take his father NANCI. 03/02/25 patient's son LES decided to proceed with hospitalization yesterday evening. Workup for syncope. 2D echo was done patient continues to have low heart rate given to patient's son his case worker's is already aware of his heart rate. Patient is pending carotid patient is has moments of behavioral disturbance currently on one-to-one patient attempts to get out of bed the son reported to primary nurse that he failed given to his shoelaces were untied. We will get Physical therapy to [facility]. Primary nurse reached out that patient's son wants patient to be discharged after four p.m. we are still waiting for results. Of imaging REVIEW OF SYSTEMS a 14 point ROS obtained all relevant positive documented otherwise ROS negative. PHYSICAL EXAM GENERAL APPEARANCE: The patient is awake, alert, and oriented, in no acute cardiopulmonary distress. NEUROLOGICAL: Cranial nerves II-XII grossly intact. Motor is 5/5 in bilateral upper and lower extremities proximal to distal. No sensory deficits. HEENT: Face is symmetric. Pupils are equal and reactive. Extraocular movements are intact. NECK: Supple. No JVD. No thyromegaly. No submental, submandibular, pre- /postauricular, occipital or supraclavicular lymphadenopathy. CHEST: Normal chest expansion. No Telemetry. LUNGS: Absence of any rales, rhonchi or any wheezing. CARDIOVASCULAR: Regular. S1 and S2 normal. No appreciable rubs, murmurs or gallops. ABDOMEN: Soft, nontender, and nondistended. There is no rebound, voluntary guarding, or rigidity. : Deferred. No Monteiro. EXTREMITIES: Non-edematous and not cyanotic. No clubbing. Good capillary refill. SKIN: No skin breakdown. Vital Signs (last 8hr) Date Time Temp Pulse Resp B/P (MAP) Pulse Ox O2 Delivery O2 Flow Rate FiO2 03/02/25 08:00 97.5 47 17 136/78 100 Room Air 03/02/25 04:03 97.5 46 18 142/68 99 Room Air LABS: Laboratory: Test 03/02/25 05:56 03/01/25 17:07 03/01/25 14:55 Range/Units Whole Blood Glucose 81 70-110 MG/DL Bedside Glucose Comment Notified Nurse White Blood Count 5.4 4.8-10.8 K/uL Red Blood Count 3.86 L 4.50-6.20 MIL/uL Hemoglobin 11.7 L 14.0-18.0 g/dL Hematocrit 36.6 L 42-54 % Mean Corpuscular Volume 94.8 79-99 fL Mean Corpuscular Hemoglobin 30.3 27.0-33.0 pg Mean Corpuscular Hemoglobin Concent 32.0 32.0-36.0 g/dL Red Cell Distribution Width 14.3 11.0-15.5 % Platelet Count 232 130-400 K/uL Mean Platelet Volume 10.9 H 7.5-10.5 fL Immature Granulocyte % (Auto) 0.2 0-1 % Neutrophils (%) (Auto) 48.8 40.0-77.0 % Lymphocytes (%) (Auto) 32.5 21.0-51.0 % Monocytes (%) (Auto) 8.7 3.0-13.0 % Eosinophils (%) (Auto) 8.9 H 0.0-8.0 % Basophils (%) (Auto) 0.9 0.0-5.0 % Neutrophils # (Auto) 2.6 1.8-7.7 K/uL Lymphocytes # (Auto) 1.8 1.0-4.8 K/uL Monocytes # (Auto) 0.5 0.1-1.0 K/uL Eosinophils # (Auto) 0.48 0.00-0.70 K/uL Basophils # (Auto) 0.05 0.00-0.20 K/uL Absolute Immature Granulocyte (auto 0.01 0-1 K/uL Nucleated Red Blood Cells 0.0 0.0-0.19 % Prothrombin Time 10.7 9.6-11.6 SEC Prothromb Time International Ratio 1.01 0.85-1.15 Activated Partial Thromboplast Time 24.0 L 26.3-35.5 SEC Sodium Level 145 136-145 mmol/L Potassium Level 4.5 3.5-5.1 mmol/L Chloride Level 106 101-111 mmol/L Carbon Dioxide Level 32 21-32 mmol/L Blood Urea Nitrogen 21 H 7-18 mg/dL Creatinine 1.5 H 0.5-1.3 mg/dL Glomerular Filtration Rate Calc 48 >90 mL/min Random Glucose 105 70-105 mg/dL Total Calcium 9.4 8.5-10.1 mg/dL Magnesium Level 2.10 1.80-2.40 mg/dL Total Creatine Kinase 84 # 21-232 U/L Troponin I High Sensitivity 8 4-75 ng/L B-Type Natriuretic Peptide 70 0-100 pg/mL Current Medications Medications (Trade) Dose Ordered Sig/Margarito Route PRN Reason Start Time Stop Time Status Last Admin Dose Admin Acetaminophen (TYLenol 325MG TAB) 650 mg Q4H PRN PO TEMPERATURE GREATER THAN 101.5 03/01/25 17:00 03/31/25 16:59 Famotidine (Pepcid 20mg Vial) 20 mg Q24H IV 03/01/25 21:00 03/31/25 20:59 03/01/25 21:17 20 MG Hydralazine HCl (APRESOLine 20MG INJ) 5 mg Q4H PRN IV ADMINISTER FOR SBP > 160 03/01/25 17:00 03/31/25 16:59 Insulin Human Regular (humuLIN R 100 UNIT/ML 3ML) INSULIN SLIDING SCAL... ACHS SQ 03/01/25 21:00 03/31/25 20:59 Lactulose (Constulose 20gm/ 30ml Udcup) 20 gm BID PRN PO CONSTIPATION 03/01/25 17:00 03/31/25 16:59 Magnesium Sulfate 50 ml @ 0 mls/hr PROTOCOL PRN IV low mag level 03/01/25 17:00 03/31/25 16:59 Ondansetron HCl (zoFRAN 4MG INJ) 4 mg Q6H PRN IVP NAUSEA/VOMITING 03/01/25 17:00 03/31/25 16:59 Potassium Chloride 100 ml @ 100 mls/hr AD PRN IV POTASSIUM PROTOCOL 03/01/25 17:00 03/31/25 16:59 Potassium Chloride (K-Dur/Klor-Con 20meq) 20 meq AD PRN PO POTASSIUM PROTOCOL 03/01/25 17:00 03/31/25 16:59 Potassium Chloride (KCl 10% Elixir 20meq/15ml) 20 meq AD PRN PO POTASSIUM PROTOCOL 03/01/25 17:00 03/31/25 16:59 Sodium Chloride 1,000 ml @ 75 mls/hr [id number] IV 03/01/25 17:00 03/02/25 16:59 03/01/25 21:17 75 MLS/HR DIAGNOSTICS / RADIOLOGY: [ ] ASSESSMENT: Mechanical fall POA suspecting orthostatic hypotensive POA Suspecting Autonomic imbalance POA IZABELLA ATN POA Dehydration POA Alzheimer's POA HTN uncontrolled POA PLAN: LEFT AMA: PER SON REQUEST: NURY WISE POTimmy Admit: Surgical medical with tele condition: Guarded Status: Full code IVF: NS 75 mL/hour Consultants case worker's Test: Echo to evaluate LV function and carotid Doppler Labs cbc, cmp, mag+ TSH lipid panel A.c. HS with sliding scale. Replace electrolytes as needed as per protocol to keep potassium above 4.0 magnesium 2.0. Home medications pending to be reviewed by RN nurse. PRN: MEDICATIONS Supportive measures: DVT ppx, GI ppx all questions answered Supervising MD: Dr. Kearney c/d This document was generated in part using voice recognition software, occasional wrong word or sound alike substitutions may have occurred due to the inherent li mitations of voice recognition software. Read the chart carefully and recognize using context, where the substitutions have occurred. Although every effort was made to edit the content, inventory taker and typing errors may occur ATTESTATION BY PHYSICIAN I have seen and examined the patient. I reviewed the documentation, medical decision making, and treatment plan as noted by the mid-level provider above. I agree with the findings and plan of care. JESSE KEARNEY MD, ELIZABETH NP Mar 02, 2025 08:50
[2025-03-02] MEDS ORDERED: hydrOXYzine 25 MG TABLET PO PRN (09:00)
[2025-03-02] MEDS: CARBOXYMETHYLCELLULOS OP SCH (09:00)
[2025-03-02] MEDS: GLYCERIN OP SCH (09:00)
[2025-03-02] MEDS: Cholecalciferol (Vitamin D3) 50 MCG PO SCH (09:00)
[2025-03-02] MEDS ORDERED: NON-FORMULARY MEDICATION 1 EACH (Lactulose 10 GM) PO SCH (09:00)
[2025-03-02 09:13] LABS: BASOPHILS # (AUTO) 0.05 K/uL (0.00-0.20); EOSINOPHILS # (AUTO) 0.53 K/uL (0.00-0.70); EOSINOPHILS % (AUTO) 10.3 % (0.0-8.0); HEMATOCRIT 35.7 % (42-54); IMMATURE GRANULOCYTE ABSOLUTE 0.02 K/uL (0-1); LYMPHOCYTES # (AUTO) 1.6 K/uL (1.0-4.8); LYMPHOCYTES % (AUTO) 30.6 % (21.0-51.0); MEAN CORPUSCULAR HEMOGLOBIN 30.6 pg (27.0-33.0); MEAN CORPUSCULAR HGB CONC 32.5 g/dL (32.0-36.0); MEAN CORPUSCULAR VOLUME 94.2 fL (79-99); MONOCYTES # (AUTO) 0.4 K/uL (0.1-1.0); MONOCYTES % (AUTO) 7.4 % (3.0-13.0); NEUTROPHILS # (AUTO) 2.6 K/uL (1.8-7.7); NEUTROPHILS % (AUTO) 50.3 % (40.0-77.0); PLATELET COUNT (AUTO) 167 K/uL (130-400); RED BLOOD CELL COUNT(AUTO) 3.79 MIL/uL (4.50-6.20); WHITE BLOOD COUNT (AUTO) 5.2 K/uL (4.8-10.8)
[2025-03-02 09:20] LABS: CREATININE 1.3 mg/dL (0.5-1.3)
[2025-03-02 09:32] LABS: ALBUMIN 3.7 g/dL (3.5-5.0); BILIRUBIN,TOTAL 0.5 mg/dL (0.2-1.0); MAGNESIUM 1.9 mg/dL (1.80-2.40); THYROID STIMULATING HORMONE 3.33 uIU/mL (0.36-3.74); TOTAL PROTEIN, SERUM 7.3 g/dL (6.0-8.3)
[2025-03-02] MEDS: SPIRONOLACTONE 25 MG TAB PO SCH (09:48)
[2025-03-02] MEDS: TRIAMCINOLONE ACETONIDE 0.1% CREAM 15GM TP SCH (09:48)
[2025-03-02] MEDS: CYPROHEPTADINE HCL 4 MG TAB PO SCH (09:49)
[2025-03-02] MEDS: RIVASTIGMINE 4.6MG/24HR PATCH TD SCH (09:49)
[2025-03-02] MEDS: LISINOPRIL 20 MG TABLET PO SCH (09:49)
[2025-03-02 11:56] VITALS: BP 133/54; PULSE 70; RESP 18; TEMP 97.5
--- NOTE | 2025-03-02 13:56 | NUR ---
DCP: RETURN TO [facility]- family to transport at [place] Pt with advanced Alzheimer's, currently on . Sw spoke to daughter/[place] Nata Hoff [phone]. per daughter, pt resides at [facility] since Aug 2021. Pt requires assistance with his ADLS from staff, uses no DME for ambulation. PCP is Keith Sims and uses [facility] for meds thru [place]. per daughter, she/family will transport pt home at [place]. Addendum: 03/02/25 at 1401 by HOWARD LICONA SS Amended: Links added.
--- NOTE | 2025-03-02 14:57 | NUR ---
PTATIENT PRESSED CODE BLUE ALARM IN ROOM. BEGAN LAUGHING HOW FAST STAFF RESPONDED.
--- NOTE | 2025-03-02 15:40 | DS ---
Discharge Summary Hospital Course Summary: admission date; 03/01/25 PCP; Levi Major chief complaints: Fall This is a 74-year-old male was brought in by EMS from [facility] facility apparently patient had a mechanical fall unwitnessed. Patient was found by staff and brought him to ED for further evaluation and treatment. During the course patient had an episode of heart rate 47-52 patient does have a history of cardiac as per son and his pit boss's knows about his heart rate. I explained to the son given to patient having a syncope episode he is being admitted for further workup. He was adamant that there is no need for patient to be admitted . The son Ryan Hoff refused further workup on this admission and he will take his father AMA. 03/02/25 patient's son LES decided to proceed with hospitalization yesterday evening. Workup for syncope. 2D echo was done patient continues to have low heart rate given to patient's son his pit boss's is already aware of his heart rate. Patient is pending carotid patient is has moments of behavioral disturbance currently on one-to-one patient attempts to get out of bed the son reported to primary nurse that he failed given to his shoelaces were untied. We will get Physical therapy to [facility]. Primary nurse reached out that patient's son wants patient to be discharged after four p.m. we are still waiting for results. Of imaging. Patient is clinically stable patient is ambulating in hallways with one-to-one sitter for safety measures. Patient we will need to follow-up with his primary pit boss's to follow-up 2D echo. Procedure(s): REASON: syncope ORDERING PHYSICIAN: BEBE BEAR MD PROCEDURE: HEAD WO - CT HEAD/BRAIN W/O CONTRAST CT HEAD WITHOUT CONTRAST INDICATION: Syncope TECHNIQUE: Noncontrast axial helical CT images from the vertex through the skull base using 5 mm slice thickness without contrast material. Coronal and sagittal reconstructions were also included. Dose reduction techniques was used using integrated, automated and adaptive dose reduction exposure control. CT was performed with one or more of the following dose reduction techniques: Automated exposure control, adjustment of the mA and/or kV according to patient size, or use of iterative reconstruction technique. COMPARISON: 02/16/24 FINDINGS: Scattered and coalescent subcortical and periventricular white matter low attenuating areas likely represent residual of chronic small vessel arteriopathy and/or remote vascular insult. Generalized mild cerebral cortical atrophy is present.. No evidence for abnormal extra-axial fluid collections or masses. The ventricles and sulci are normal in size and configuration. No evidence for intracranial parenchymal, epidural, or subdural hemorrhage, mass effect or midline shift. The dillon-white matter differentiation is well preserved. No secondary evidence to suggest acute ischemia. Mild calcific plaque is present along the murray of the cavernous segments of both internal carotid arteries. The brainstem and cerebellum appear normal. The visualized orbits appear unremarkable. The visible paranasal sinuses and mastoid air cells are clear. The calvarium appears normal. IMPRESSION: Chronic white matter ischemic changes, mild brain atrophy, and arteriosclerotic disease as described, without acute component. DICTATED BY: IRVIN COLES MD DATE: 03/01/251603 ELECTRONICALLY SIGNED BY: IRVIN COLES MD DATE: 03/01/251606 Assessment/Plan: DISCHARGED DX. Mechanical fall POA suspecting orthostatic hypotensive POA bradycardiac asymptomatic: hx bradycardiac Suspecting Autonomic imbalance POA IZABELLA ATN POA Dehydration POA Alzheimer's POA HTN uncontrolled POA PLAN: ADMISSION DATE: 03/01/2025 DISCHARGE DATE: 03/02/2025 DISPOSITION: [facility] CONDITION: Stable PAINT MIXER(S): None FOLLOW UP APPOINTMENT(S): Follow-up with primary pit boss's and PCP in 2-3 days PROCEDURES: None IMAGING (S) report attached to summary : Echo patient refused carotid MICROBIOLOGY: report attached to summary; ACTIVITY: Ad grzegorz HOME MEDICATIONS reviewed remain the same CHANGES ON HOME MEDICATIONS none NEW MEDICATIONS none TEACHING: Fall precautions Emergency instructions: The patient was instructed to present to the nearest Emergency Department or call 911 should their symptoms return or worsen. Home Medications: Reported Medications Carboxymethylcellulos/Glycerin (Refresh Optive Eye Drops) 0.5 %-0.9 % Drops, 1 DROP OP BID for dry eyes for 30 Days, #30 ML 0 Refills 03/01/25 Latanoprost (Latanoprost) 0.005 % Drops, 1 DROP OP HS, ML 0 Refills 03/01/25 Lactulose (Lactulose) 10 Gram/15 Ml Solution, 10 GM PO BID, ML 03/01/25 Hydroxyzine HCl (Hydroxyzine HCl) 25 Mg Tablet, 25 MG PO TIDP PRN for ANXIETY, TAB 03/01/25 Cyproheptadine HCl (Cyproheptadine HCl) 4 Mg Tablet, 4 MG PO BID, TAB 03/01/25 Clotrimazole (Clotrimazole) 1 % Cream..g., 1 APPL TP BID for 7 Days, #15 GM 0 Refills apply to affected area(s) 03/01/25 Cholecalciferol (Vitamin D3) (Vitamin D3) 50 Mcg (2000 Unit) Capsule, 50 MCG PO DAILY, CAP 03/01/25 Triamcinolone Acetonide (Triamcinolone Acetonide) 0.1 % Cream.gm., 1 APPL TP BID for 10 Days, #80 GM 0 Refills 03/01/25 Spironolactone (Spironolactone) 25 Mg Tablet, 25 MG PO QMOWEFR, TAB 03/01/25 Simvastatin (Simvastatin) 20 Mg Tablet, 20 MG PO HS, TAB 03/01/25 Rivastigmine (Exelon 4.6 mg/24 Hr) 4.6 Mg/24 Hour Patch, 1 PATCH TP DAILY for 30 Days, #30 PATCH 0 Refills 03/01/25 Risedronate Sodium (Risedronate Sodium) 35 Mg Tablet, 35 MG PO QWEEK, TAB 03/01/25 Lisinopril (Lisinopril) 20 Mg Tablet, 20 MG PO DAILY, TAB 03/01/25 Continued Medications: Carboxymethylcellulos/Glycerin (Refresh Optive Eye Drops) 0.5 %-0.9 % Drops 1 DROP OP BID for dry eyes for 30 Days, #30 ML 0 Refills Cholecalciferol (Vitamin D3) (Vitamin D3) 50 Mcg (2000 Unit) Capsule 50 MCG PO DAILY, CAP Clotrimazole (Clotrimazole) 1 % Cream..g. 1 APPL TP BID for 7 Days, #15 GM 0 Refills apply to affected area(s) Cyproheptadine HCl (Cyproheptadine HCl) 4 Mg Tablet 4 MG PO BID, TAB Hydroxyzine HCl (Hydroxyzine HCl) 25 Mg Tablet 25 MG PO TIDP PRN for ANXIETY, TAB Lactulose (Lactulose) 10 Gram/15 Ml Solution 10 GM PO BID, ML Latanoprost (Latanoprost) 0.005 % Drops 1 DROP OP HS, ML 0 Refills Lisinopril (Lisinopril) 20 Mg Tablet 20 MG PO DAILY, TAB Risedronate Sodium (Risedronate Sodium) 35 Mg Tablet 35 MG PO QWEEK, TAB Rivastigmine (Exelon 4.6 mg/24 Hr) 4.6 Mg/24 Hour Patch 1 PATCH TP DAILY for 30 Days, #30 PATCH 0 Refills Simvastatin (Simvastatin) 20 Mg Tablet 20 MG PO HS, TAB Spironolactone (Spironolactone) 25 Mg Tablet 25 MG PO QMOWEFR, TAB Triamcinolone Acetonide (Triamcinolone Acetonide) 0.1 % Cream.gm. 1 APPL TP BID for 10 Days, #80 GM 0 Refills Time spent arranging discharge: 31-60 minutes ATTESTATION BY PHYSICIAN I have seen and examined the patient. I reviewed the documentation, medical decision making, and treatment plan as noted by the mid-level provider above. I agree with the findings and plan of care. JESSE DILLON MD, ELIZABETH NP Mar 02, 2025 15:40
[2025-03-02 16:00] VITALS: BP 144/62; PULSE 71; RESP 17; TEMP 98.1
--- NOTE | 2025-03-02 16:55 | NUR ---
d/c instructions given to daughter/son in law acknowledgged. iv removed
[2025-03-02] MEDS ORDERED: simVASTatin 20 MG TABLET PO SCH (21:00)
[2025-03-02] MEDS ORDERED: LATANOPROST 2.5 ML DROPS OP SCH (21:00)
--- NOTE | 2025-03-03 15:19 | HMCSR ---
APPROVED REPORT EXAM: Two-dimensional and M-mode echocardiogram with Doppler and color Doppler. INDICATION ICD: R55 Syncope 2D Dimensions RVDd4.1 cmLVEF(%)62.8 (>50%)LVED Vol(simp.)139.0 mL IVSd0.8 (0.7-1.1cm)FS(%)34 %LVES Vol(simp.)63.0 mL LVDd5.4 (3.8-5.6cm)LA (2D)4.6 (1.6-4.0cm)LVEF(%, simp.)55 % PWd0.6 (0.7-1.1cm)Ao Root(2D)3.4 (2.0-3.7cm)LA ESV INDEX (BP)42.88 mL/m2 IVSs1.2 cmLVOT diam2.5 (1.8-2.4cm) LVDs3.5 (2.5-4.0cm)IVC diam1.8 cm PWs1.2 cm Deformation Strain Apical 4-17.0 % Apical 2-18.0 % Apical 3-24.0 % Global Strain-20.0 % M-Mode Dimensions EPSS1.1 cm LA (MM)4.1 (1.6-4.0cm) Ao Root(MM)3.2 (2.0-3.7cm) Aortic Valve AoV Vmax2.0 m/Raymundo Peak GR15.5 mmHgLVOT Vmax1.1 m/s AoV VTI0.4 mAo Mean GR8.3 mmHgLVOT VTI0.24 m WILVER (VMAX)2.7 cm2AVA (VTI) 2.7 cm2 Mitral Valve MV E Vmax69.8 cm/sDECEL Gmqu607 ms MV A Vmax77.3 cm/sP 1/2 T78 ms E/A ratio0.9MVA (PHT)2.8 cm2 TDI E/E' Mnutts02.0E/E' Lateral7.8 Medial E' Peak V7.00 cm/sLateral E' Peak V9.00 cm/s Pulmonary Valve PV Vmax0.9 m/s Tricuspid Valve TR Vmax1.1 m/sRAP (EST) 8 gtBiAZOC89.4 mmHg TR Peak GR5.4 mmHg Left Ventricle The left ventricle is normal size. GLS -20.0%. There is normal LV segmental wall motion. There is nor mal left ventricular wall thickness. LVEF is 55-60%. Indeterminate diastolic dysfunction. Right Ventricle The right ventricle is normal size. The right ventricular systolic function is normal. Atria The left atrium is moderately dilated. The right atrium size is normal. Aortic Valve The aortic valve is normal in structure. Trace of aortic regurgitation is present. There is no aortic valvular stenosis. Mitral Valve The mitral valve is mildly thickened and open well. Mild posterior annular calcification noted. There is trace of mitral valve regurgitation noted. There is no mitral valve stenosis. Tricuspid Valve The tricuspid valve is normal in structure. There is no tricuspid valve regurgitation noted. Pulmonic Valve The pulmonary valve is normal in structure. There is no pulmonic valvular regurgitation. Great Vessels The aortic root is normal in size. IVC is not well visualized. Pericardium There is no pericardial effusion. Other Information Quality : Adequate Conclusion Underlying rhythm is atrial fibrillation. GLS -20.0%. There is normal LV segmental wall motion. LVEF is 55-60%. Trace of aortic regurgitation is present. The mitral valve is mildly thickened and open well. Mild posterior annular calcification noted. There is trace of mitral valve regurgitation noted. There is no pericardial effusion.
== END 2025-03-02 17:25 | disposition home or self-care (01) ==
LOC: EDH 14:23 → EDHIP 16:35 → INTOOBSV 16:35 → 3BH 19:35
PROVIDERS: ADMIT Internal Medicine; ATTEND Internal Medicine
DX: R55 Syncope and collapse (principal); R00.1 Bradycardia, unspecified; N17.0 Acute kidney failure with tubular necrosis; E86.0 Dehydration; I10 Essential (primary) hypertension; E11.9 Type 2 diabetes mellitus without complications; G30.9 Alzheimer's disease, unspecified; F02.80 Dementia in other diseases classified elsewhere, unspecified severity, without behavioral disturbance, psychotic disturbance, mood disturbance, and anxiety; Z53.29 Procedure and treatment not carried out because of patient's decision for other reasons; Z79.899 Other long term (current) drug therapy; W19.XXXA Unspecified fall, initial encounter; Y93.89 Activity, other specified; Y92.89 Other specified places as the place of occurrence of the external cause; Y99.8 Other external cause status
CPT/HCPCS: 96361 ×2; 99285; 82550; 83735 ×2; 84484; 80048; 83880; 85025 ×2; 85610; 85730; 82948 ×4; 36415 ×2; 71045; 70450; 96374; 96375; 93005; 84443; 80061; 80053; 93306; 97161; 97116; J3490; J3360; G0378 ×8

== ENCOUNTER 2025-09-16 12:57 | Emergency (ER) | payer MEDICARE ==
[~2025-09-16] VITALS: Ht 167.6 cm; Wt 59.0 kg
[~2025-09-16 12:57] MED LIST: CARB15DR2 OP; CHOL2000 PO; CLOT15CR23 TP; CYPR4TAB46 PO; HYDR-3421 PO; LACT-441 PO; LATA2.5D7 OP; LISI20TA24 PO; RISE35TA12 PO; RIVA4.6T TP; SIMV-43 PO; SPIR25TA6 PO; TRIAM15CRM TP
--- NOTE | 2025-09-16 13:02 | ERN ---
ED Note History of Present Illness Stated Complaint: SWOLLEN GROIN Chief Complaint: Groin Pain Time Seen by MD: 13:00 Dictation: IS A 75-YEAR-OLD MALE COMING IN FROM A LOCAL LONGTERM WITH COMPLAINTS OF PAINLESS SCROTAL SWELLING WITH TESTICULAR TENDERNESS ONSET THIS MORNING. NO FEVER NO CHILLS NO NAUSEA VOMITING. NO HISTORY OF CIRRHOSIS CA. PATIENT IS IN NO ACUTE DISTRESS THIS TIME. AFEBRILE IN ROUTE Allergies: Coded Allergies: Penicillins (Unverified Allergy, Unknown, 02/12/24) Home Meds Reported Medications Carboxymethylcellulos/Glycerin (Refresh Optive Eye Drops) 0.5 %-0.9 % Drops, 1 DROP OP BID for dry eyes for 30 Days, #30 ML 0 Refills 03/01/25 Latanoprost (Latanoprost) 0.005 % Drops, 1 DROP OP HS, ML 0 Refills 03/01/25 Lactulose (Lactulose) 10 Gram/15 Ml Solution, 10 GM PO BID, ML 03/01/25 Hydroxyzine HCl (Hydroxyzine HCl) 25 Mg Tablet, 25 MG PO TIDP PRN for ANXIETY, TAB 03/01/25 Cyproheptadine HCl (Cyproheptadine HCl) 4 Mg Tablet, 4 MG PO BID, TAB 03/01/25 Clotrimazole (Clotrimazole) 1 % Cream..g., 1 APPL TP BID for 7 Days, #15 GM 0 Refills apply to affected area(s) 03/01/25 Cholecalciferol (Vitamin D3) (Vitamin D3) 50 Mcg (2000 Unit) Capsule, 50 MCG PO DAILY, CAP 03/01/25 Triamcinolone Acetonide (Triamcinolone Acetonide) 0.1 % Cream.gm., 1 APPL TP BID for 10 Days, #80 GM 0 Refills 03/01/25 Spironolactone (Spironolactone) 25 Mg Tablet, 25 MG PO QMOWEFR, TAB 03/01/25 Simvastatin (Simvastatin) 20 Mg Tablet, 20 MG PO HS, TAB 03/01/25 Rivastigmine (Exelon 4.6 mg/24 Hr) 4.6 Mg/24 Hour Patch, 1 PATCH TP DAILY for 30 Days, #30 PATCH 0 Refills 03/01/25 Risedronate Sodium (Risedronate Sodium) 35 Mg Tablet, 35 MG PO QWEEK, TAB 03/01/25 Lisinopril (Lisinopril) 20 Mg Tablet, 20 MG PO DAILY, TAB 03/01/25 Past Medical History Past Medical History: Dementia, Diabetes-Type II, Hypertension Additional Past Medical Hx: ALZHEIMERS Surgical History: Unknown RN Note Reviewed/Agreed w/PFSH: Yes Review of System Dictation CONSTITUTIONAL: NEGATIVE EXCEPT FOR HPI HEAD/FACE: NEGATIVE EXCEPT FOR HPI EENT: NEGATIVE EXCEPT FOR HPI RESPIRATORY: NEGATIVE EXCEPT FOR HPI GASTROINTESTINAL/ABDOMINAL: NEGATIVE EXCEPT FOR HPI GENITOURINARY: NEGATIVE EXCEPT FOR HPI SCROTAL AND TESTICULAR SWELLING ONSET THIS A.M. MUSCULOSKELETAL: NEGATIVE EXCEPT FOR HPI INTEGUMENTARY: NEGATIVE EXCEPT FOR HPI NEUROLOGICAL/PSYCH: NEGATIVE EXCEPT FOR HPI HEMATOLOGIC/LYMPHATIC: NEGATIVE EXCEPT FOR HPI ALL SYSTEMS NEGATIVE, EXCEPT NOTED ABOVE. 13 POINT REVIEW OF SYSTEMS ASSESSED AND ALL NEGATIVE EXCEPT FOR ABOVE. Initial Vital Sign VS Vital Signs Date Time Temp Pulse Resp B/P (MAP) Pulse Ox O2 Delivery O2 Flow Rate FiO2 09/16/25 12:59 98.1 50 20 117/74 98 Room Air 0 Physical Exam Dictation VITAL SIGNS REVIEWED GENERAL APPEARANCE: ALERT, ORIENTED X 3, NO ACUTE DISTRESS, WELL DEVELOPED, NOURISHED. HEAD AND FACE: NON-TRAUMATIC. EYES: PERRL, PINK CONJUNCTIVAS, EYELID NO TRAUMA, ANTERIOR CHAMBER WITH ARCUS SENILIS. EARS: PINNAS INTACT AND NO SIGNS OF TRAUMA OR ERYTHEMA EAR CANALS CLEAR AND NO DISCHARGE TM NO ERYTHEMA NOSE: NO DISCHARGE, NO BLEEDING. OROPHARYNX: MOUTH NORMAL, TONGUE PINK, PHARYNX CLEAR,NO ERYTHEMA, TONSILS NO EXUDATES, NO ABSCESSES NOTED, MUCOUS MEMBRANE MOIST NECK: SUPPLE, NON-TENDER, NO THYROMEGALY, NO MASSES, NO JVD, NO BRUITS BREAST:DEFERRED CHEST:NO TENDERNESS, NO CREPITUS, NO PARADOXICAL MOVEMENT, NO RETRACTIONS LUNGS:CLEAR, WELL-VENTILATED, SYMMETRIC, NO RALES, NO WHEEZING, NO RHONCHI, NO STRIDOR, GOOD BREATH SOUNDS BILATERALLY HEART: REGULAR RATE, REGULAR RHYTHM, NO MURMUR, NO GALLOPS VASCULAR: NO PERIPHERAL EDEMA, ABDOMEN: SOFT, POSITIVE BOWEL SOUNDS, NONDISTENDED, NO GUARDING, MILD LEFT INGUINAL TENDERNESS. NO REDUCIBLE MASS. SKIN INTACT, NO ERYTHEMA NO SWELLING RECTAL: DEFERRED GENITAL: PATIENT IS HOODED, MILD RIGHT TESTICULAR PAIN WITH PALPATION. BILATERAL TESTICLES ARE DESCENDED POSITIVE CREMASTERIC REFLEX BILATERALLY NO CASSANDRA NEUROLOGICAL: NORMAL SPEECH, MOTOR FUNCTION INTACT, SENSORY FUNCTION INTACT MUSCULOSKELETAL: NECK NONTENDER, FULL RANGE OF MOTION, BACK NONTENDER, FULL RA NGE OF MOTION, EXTREMITIES: NONTENDER, FULL RANGE OF MOTION SKIN: COLOR PINK, DRY, NO TURGOR, NO RASH, NO LACERATIONS, NO ABRASIONS, NO CONTUSIONS. LYMPHATIC: DEFERRED Results (Laboratory/Radiology) Laboratory/Radiology Laboratory Tests Test 09/16/25 13:20 White Blood Count 5.0 K/uL (4.8-10.8) Red Blood Count 3.97 MIL/uL (4.50-6.20) L Hemoglobin 12.2 g/dL (14.0-18.0) L Hematocrit 37.7 % (42-54) L Mean Corpuscular Volume 95.0 fL (79-99) Mean Corpuscular Hemoglobin 30.7 pg (27.0-33.0) Mean Corpuscular Hemoglobin Concent 32.4 g/dL (32.0-36.0) Red Cell Distribution Width 14.3 % (11.0-15.5) Platelet Count 212 K/uL (130-400) Mean Platelet Volume 10.5 fL (7.5-10.5) Immature Granulocyte % (Auto) 0.2 % (0-1) Neutrophils (%) (Auto) 52.7 % (40.0-77.0) Lymphocytes (%) (Auto) 28.9 % (21.0-51.0) Monocytes (%) (Auto) 9.8 % (3.0-13.0) Eosinophils (%) (Auto) 7.6 % (0.0-8.0) Basophils (%) (Auto) 0.8 % (0.0-5.0) Neutrophils # (Auto) 2.6 K/uL (1.8-7.7) Lymphocytes # (Auto) 1.4 K/uL (1.0-4.8) Monocytes # (Auto) 0.5 K/uL (0.1-1.0) Eosinophils # (Auto) 0.38 K/uL (0.00-0.70) Basophils # (Auto) 0.04 K/uL (0.00-0.20) Absolute Immature Granulocyte (auto 0.01 K/uL (0-1) Nucleated Red Blood Cells 0.0 % (0.0-0.19) Sodium Level 139 mmol/L (136-145) Potassium Level 4.1 mmol/L (3.5-5.1) Chloride Level 102 mmol/L (101-111) Carbon Dioxide Level 32 mmol/L (21-32) Blood Urea Nitrogen 23 mg/dL (7-18) H Creatinine 1.3 mg/dL (0.5-1.3) Glomerular Filtration Rate Calc 57 mL/min (>90) Random Glucose 79 mg/dL (70-105) Total Calcium 9.0 mg/dL (8.5-10.1) 1345/scrotal ultrasound demonstrates positive flow to both testicles. No epididymitis Left complex hydrocele noted No masses 1420/RECEIVED A CALL FROM /RADIOLOGIST'S ON OVER-READ OF THE ULTRASOUND OF SCROTUM TESTICLES. HIS DIAGNOSIS IS ACUTE RIGHT EPIDIDYMO-ORCHITIS. WE WILL INITIATE LEVAQUIN ANTIBIOTICS FOR 14 DAYS. 1445/INGUINAL ULTRASOUND PERFORMED ON THE LEFT TO RULE OUT HERNIA. PATIENT HAS A SMALL HERNIA NOTED THERE WAS NO INCARCERATION OR STRANGULATION ON ULTRASOUND Labs Reviewed?: Yes ED Course ED Course Orders Procedure Category Date Status Time Us Scrotum & Contents US 09/16/25 Resulted 13:00 Cbc With Differential LAB 09/16/25 Complete 13:00 Urinalysis Profile LAB 09/16/25 Logged 13:00 Basic Metabolic Panel LAB 09/16/25 Complete 13:00 Us Soft Tissue Groin US 09/16/25 Taken 14:01 Levofloxacin 500mg PHA 09/16/25 Complete Tab (Levaquin 500mg T 14:17 Current Medications Medications (Trade) Dose Ordered Sig/Margarito Route PRN Reason Start Time Stop Time Status Last Admin Dose Admin Levofloxacin (LEvaquIN 500MG TAB) 500 mg ONCE STAT PO 09/16/25 14:17 09/16/25 14:21 DC Vital Signs Date Time Temp Pulse Resp B/P (MAP) Pulse Ox O2 Delivery O2 Flow Rate FiO2 09/16/25 12:59 98.1 50 20 117/74 98 Room Air 0 1445/SPOKE WITH PATIENT'S SON-IN-LAW AT BEDSIDE AND HE IS AWARE THAT THERE IS A RIGHT EPIDIDYMO-ORCHITIS ALSO A SMALL HERNIA ON THE LEFT INGUINAL AREA THAT IS NOT INCARCERATED OR STRANGULATED. LEVAQUIN 500 MG DAILY FOR 14 DAYS, TREATMENT WAS A SHE NEEDED NOW. PATIENT WILL RETURN BACK TO LONGTERM. Medical Decision Making MDM MDM: DIFFERENTIAL DIAGNOSIS: ORCHITIS/TORSION/EPIDIDYMITIS/HERNIA/ELECTROLYTE IMBALANCE/DEHYDRATION RATIONALE: TESTS CONSIDERED AND ORDERED SECONDARY TO SHARED DECISION MAKING INCL UDE: ULTRASOUND/LABS PREVIOUS OUTSIDE RECORDS REVIEWED: OLD ER VISITS. RISK OF COMPLICATION AND/OR MORBIDITY OR MORTALITY OF PATIENT MANAGEMENT: NONE MEDICATIONS-PER MEDICATION RECONCILIATION NEED FOR HOSPITALIZATION: PATIENT DOES NOT MEET CRITERIA FOR HOSPITALIZATION. NONE NEED FOR EMERGENCY MAJOR/MINOR SURGERY: NO THERE ARE NO SOCIAL CONCERNS WITH THIS PATIENT. PRESCRIPTION DRUG MANAGEMENT LEVAQUIN PRESCRIPTIONS WILL INCLUDE SYMPTOMATIC CARE PATIENT'S PRIOR EXTERNAL MEDICAL RECORDS FROM OTHER ER VISITS WERE REVIEWED BY ME INDICATED. PRIOR TESTING AND RESULTS FROM PREVIOUS VISITS WERE REVIEWED. PRIOR TESTS WERE TAKEN INTO ACCOUNT WITH MEDICAL DECISION MAKING AND RESOURCE UTILIZATION, INDEPENDENT HISTORIAN/HISTORIANS WERE USED TO OBTAIN COMPLETE ME DICAL HISTORY. I INDEPENDENTLY INTERPRETED THE TEST THAT WERE PERFORMED, RESULTS WERE REVIEWED BY ME AND CONSIDERED FINDINGS ON RADIOLOGY IF ORDERED. MEDICAL MANAGEMENT AND EXAMINATION INTERPRETATION DISCUSSIONS WERE HAD BY ME WITH OTHER QUALIFIED HEALTHCARE PROFESSIONALS INDICATED FOR THE PATIENT'S CARE. 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 TAKE MEDICATIONS DIRECTED HERE IN THE EMERGENCY ROOM. OKAY TO CONTINUE HOME MEDICATIONS UNLESS OTHERWISE DISCUSSED DURING YOUR VISIT IN THE EMERGENCY ROOM TODAY. RETURN TO YOUR NEAREST EMERGENCY ROOM IF SYMPTOMS WORSEN OR IF THERE IS NO IMPROVEMENT. CALL 911 IF YOU NEED IMMEDIATE ASSISTANCE. TAKE TYLENOL OR MOTRIN [id number] NEEDED AND IF NO CONTRAINDICATIONS ARE PRESENT. INCREASE ORAL HYDRATION. A WOUND CULTURE OR URINE CULTURE WAS ORDERED HERE IN THE EMERGENCY ROOM DEPARTMENT PLEASE FOLLOW-UP WITH PRIMARY CARE PROVIDER AND ADVISE THEM TO GET REPEAT PORTS FROM OUR FACILITY. IF YOU HAD ANY RAVI WRAP/SPLINTS THAT WERE APPLIED HERE, PLEASE DO NOT REMOVE THEM UNTIL YOU SEE YOUR PRIMARY CARE OR SPECIALTY. TAKE TYLENOL OR MOTRIN [id number] NEEDED FOR PAIN. TAKE LEVAQUIN DIRECTED STARTING TOMORROW UNTIL GONE. FOLLOW UP WITH THE YOUR PRIMARY CARE DOCTOR IN THE NEXT 2-3 DAYS FOR MANAGEMENT Referrals: YORDAN VENEGAS (PCP) Time of Disposition: 14:47 I have reviewed the case, and I agree with, Diagnosis and Plan LORETTA [employer] P[employer] MACHINE TENDER Sep 16, 2025 13:02
[2025-09-16 13:24] LABS: IMMATURE GRANULOCYTE ABSOLUTE 0.01 K/uL (0-1); NUCLEATED RED BLOOD CELLS 0.0 % (0.0-0.19); PLATELET COUNT (AUTO) 212 K/uL (130-400); RED BLOOD CELL COUNT(AUTO) 3.97 MIL/uL (4.50-6.20); RED CELL DISTRIBUTION WIDTH 14.3 % (11.0-15.5); WHITE BLOOD COUNT (AUTO) 5.0 K/uL (4.8-10.8)
--- NOTE | 2025-09-16 13:35 | NUR ---
JALYN JUST COMPLETED THEIR EXAM.
[2025-09-16 13:44] LABS: CREATININE 1.3 mg/dL (0.5-1.3); GLOMERULAR FILTR. RATE CALC 57.0 mL/min (>90); GLUCOSE,RANDOM 79.0 mg/dL (70-105); SODIUM SERUM 139.0 mmol/L (136-145); UREA NITROGEN, BLOOD 23.0 mg/dL (7-18)
--- NOTE | 2025-09-16 14:10 | HMCIMG ---
EXAM: ULTRASOUND OF THE SCROTUM AND TESTICULAR CONTENTS WITH DOPPLER Technique: Real-time grayscale ultrasound of the testes and epididymides in longitudinal and transverse planes using a high-frequency linear transducer (approximately 7???15 MHz), with color and spectral Doppler evaluation of intratesticular and epididymal blood flow and assessment of the spermatic cords and scrotal sacs. Contrast: No intravenous contrast administered. Clinical Information: Acute onset scrotal and bilateral testicular pain this morning. Findings: Right testis: Measures approximately 5.0 ??? 2.4 ??? 2.5 cm with homogeneous echotexture and increased intratesticular vascularity on color Doppler; no focal mass. Right epididymis: Head 5 mm, body 3 mm, tail 4 mm; mildly enlarged and hypervascular. Right scrotal sac: Complex hydrocele present; no varicocele identified. Spermatic cord (right): Visualized without torsion (???whirlpool???) sign. Left testis: Measures approximately 3.4 ??? 1.8 ??? 3.1 cm (dimensions transcribed from provided values) with homogeneous echotexture and normal intratesticular vascularity; no focal mass. Left epididymis: Head 6 mm, body 3 mm, tail 4 mm; vascularity within expected limits. Left scrotal sac: No hydrocele or varicocele identified. Spermatic cord (left): No sonographic evidence of torsion. Impression: * Right-sided acute epididymo-orchitis: increased intratesticular and epididymal vascularity with associated complex right hydrocele; no sonographic evidence of testicular torsion. * Left testis and epididymis within normal limits on this examination. /[place]
[2025-09-16] MEDS ORDERED: LEVO-70 PO (14:48)
[2025-09-16 15:01] VITALS: BP 131/44; PULSE 64; RESP 20; TEMP 98.6; O2SAT 97
--- NOTE | 2025-09-16 15:14 | HMCIMG ---
EXAM: ULTRASOUND OF THE GROIN SOFT TISSUES Technique: Real-time grayscale ultrasound of the bilateral inguinal regions using a high-frequency linear transducer with targeted color Doppler as indicated. Dynamic maneuvers were attempted; Valsalva could not be performed due to the patient???s altered mental status. Clinical Information: Inguinal pain and tenderness; rule out hernia. Findings ??? Groin: Left groin: Focal herniation is visualized in the inguinal region containing bowel that demonstrates peristalsis. The hernia neck and maximal dimensions are not fully characterized without Valsalva; reducibility could not be assessed. No focal complex fluid collection is described. Impression: * Left inguinal hernia containing peristaltic bowel, seen at rest. Dynamic characterization (size, neck measurement, reducibility) is limited by the inability to perform Valsalva. /[place]
== END 2025-09-16 15:13 | disposition home or self-care (01) ==
LOC: EDH 12:57
DX: N45.3 Epididymo-orchitis (principal); K40.90 Unilateral inguinal hernia, without obstruction or gangrene, not specified as recurrent; I12.9 Hypertensive chronic kidney disease with stage 1 through stage 4 chronic kidney disease, or unspecified chronic kidney disease; E11.22 Type 2 diabetes mellitus with diabetic chronic kidney disease; N18.30 Chronic kidney disease, stage 3 unspecified; D63.1 Anemia in chronic kidney disease; G30.9 Alzheimer's disease, unspecified; F02.80 Dementia in other diseases classified elsewhere, unspecified severity, without behavioral disturbance, psychotic disturbance, mood disturbance, and anxiety; Z88.0 Allergy status to penicillin; Z79.899 Other long term (current) drug therapy
CPT/HCPCS: 36415; 76870; 76882; 80048; 85025; 99284

== ENCOUNTER 2025-09-21 14:07 | Emergency (ER) | payer MEDICARE ==
[~2025-09-21] VITALS: Ht 167.6 cm; Wt 77.1 kg
[~2025-09-21 14:07] MED LIST changes: +LEVO-70 PO
[2025-09-21 14:31] VITALS: BP 124/55; PULSE 60; RESP 12; TEMP 98.1; O2SAT 100
[2025-09-21 14:44] LABS: IMMATURE GRANULOCYTE ABSOLUTE 0.02 K/uL (0-1); NUCLEATED RED BLOOD CELLS 0.0 % (0.0-0.19); PLATELET COUNT (AUTO) 212 K/uL (130-400); RED BLOOD CELL COUNT(AUTO) 3.55 MIL/uL (4.50-6.20); RED CELL DISTRIBUTION WIDTH 14.5 % (11.0-15.5); WHITE BLOOD COUNT (AUTO) 7.3 K/uL (4.8-10.8)
[2025-09-21 14:53] LABS: CREATININE 1.4 mg/dL (0.5-1.3); GLOMERULAR FILTR. RATE CALC 52.0 mL/min (>90); GLUCOSE,RANDOM 97.0 mg/dL (70-105); SODIUM SERUM 141.0 mmol/L (136-145); UREA NITROGEN, BLOOD 24.0 mg/dL (7-18)
[2025-09-21 14:56] LABS: INR 1.03 (0.85-1.15)
[2025-09-21 14:58] LABS: CREATINE KINASE, TOTAL 43.0 U/L (21-232)
--- NOTE | 2025-09-21 15:35 | HMCIMG ---
EXAM: CR Chest, 1 View. CLINICAL HISTORY: cp COMPARISON: None provided. FINDINGS: LUNGS: There is no mass, infiltrate, or acute pulmonary abnormality. PLEURAL SPACES: No pleural effusion or pneumothorax. MEDIASTINUM: Cardiac size and mediastinal contours within normal limits. BONES: No aggressive appearing osseous lesion seen. IMPRESSION: No acute cardiopulmonary pathology is evident. /[place]
--- NOTE | 2025-09-21 16:03 | ERN ---
General Chief Complaint: Chest Pain Stated Complaint: CP Time Seen by MD: 14:15 Source: patient History of Present Illness Initial Comments Patient is a 75-year-old gentleman coming in complaining of chest discomfort. Per patient this has been ongoing for some time. He states he gets fluctuating discomfort at times. Family members says that patient does has a extensive history of gastritis and frequently has these symptoms. Allergies: Coded Allergies: Penicillins (Unverified Allergy, Unknown, 02/12/24) Home Meds Active Scripts Levofloxacin (Levofloxacin) 500 Mg Tablet, 1 TAB PO DAILY for 14 Days, #14 TAB 0 Refills Prov:LORETTA [employer] 09/16/25 Reported Medications Carboxymethylcellulos/Glycerin (Refresh Optive Eye Drops) 0.5 %-0.9 % Drops, 1 DROP OP BID for dry eyes for 30 Days, #30 ML 0 Refills 03/01/25 Latanoprost (Latanoprost) 0.005 % Drops, 1 DROP OP HS, ML 0 Refills 03/01/25 Lactulose (Lactulose) 10 Gram/15 Ml Solution, 10 GM PO BID, ML 03/01/25 Hydroxyzine HCl (Hydroxyzine HCl) 25 Mg Tablet, 25 MG PO TIDP PRN for ANXIETY, TAB 03/01/25 Cyproheptadine HCl (Cyproheptadine HCl) 4 Mg Tablet, 4 MG PO BID, TAB 03/01/25 Clotrimazole (Clotrimazole) 1 % Cream..g., 1 APPL TP BID for 7 Days, #15 GM 0 Refills apply to affected area(s) 03/01/25 Cholecalciferol (Vitamin D3) (Vitamin D3) 50 Mcg (2000 Unit) Capsule, 50 MCG PO DAILY, CAP 03/01/25 Triamcinolone Acetonide (Triamcinolone Acetonide) 0.1 % Cream.gm., 1 APPL TP BID for 10 Days, #80 GM 0 Refills 03/01/25 Spironolactone (Spironolactone) 25 Mg Tablet, 25 MG PO QMOWEFR, TAB 03/01/25 Simvastatin (Simvastatin) 20 Mg Tablet, 20 MG PO HS, TAB 03/01/25 Rivastigmine (Exelon 4.6 mg/24 Hr) 4.6 Mg/24 Hour Patch, 1 PATCH TP DAILY for 30 Days, #30 PATCH 0 Refills 03/01/25 Risedronate Sodium (Risedronate Sodium) 35 Mg Tablet, 35 MG PO QWEEK, TAB 03/01/25 Lisinopril (Lisinopril) 20 Mg Tablet, 20 MG PO DAILY, TAB 03/01/25 Past Medical History Past Medical History: Dementia, Diabetes-Type II, Hypertension Medical History Other: ALZHEIMERS Past Surgical History: Other ROS Dictation CONSTITUTIONAL: No chills, no fever, no weakness, no diaphoresis, no malaise. HEAD/FACE: No signs of trauma. EENT: No eye pain, no blurred vision, no tearing, no double vision, no ear pain, no ear discharge, no nose pain, no nasal congestion, no throat pain, no throat swelling, no mouth pain. RESPIRATORY: No cough, no orthopnea, no SOB, no stridor, no wheezing. CARDIOVASCULAR: chest pain, no edema, no palpitations, no syncope. GASTROINTESTINAL/ABDOMINAL: No abdominal pain, no constipation, no diarrhea, no nausea, no vomiting. GENITOURINARY: No abnormal discharge, no dysuria, no frequent urination, no hematuria. No complaints of pain in the genitals. MUSCULOSKELETAL: No back pain, no gout, no joint pain, no joint swelling, no muscle pain, no muscle stiffness, no neck pain. INTEGUMENTARY: No change in color, no change in hair/nails, no dryness, no lesion, no lumps, no rash. NEUROLOGICAL/PSYCH: No anxiety, not depressed, no emotional problem, no headache, no numbness, no pre-existing deficit, no history of seizures, no tremors, no weakness. HEMATOLOGIC/LYMPHATIC: Not anemic, no history of blood clots, no apparent bleeding, no bruising, glands not swollen. All Systems Negative, Except as Noted. Physical Exam Physical Exam Dictation VITAL SIGNS: Reviewed. GENERAL APPEARANCE: Alert, oriented x3, no acute distress, obese. HEAD AND FACE: Non-traumatic. EYES: PERRL, pink conjunctivas, eyelid no trauma, anterior chamber clear. EARS: Pinnas intact and no signs of trauma or erythema. Ear canals clear and no discharge. TMs no erythema. NOSE: No discharge, no bleeding. OROPHARYNX: Mouth normal, teeth no caries, tongue pink. Pharynx clear, no erythema. Tonsils no exudates, no abscesses noted. Mucous membrane moist. NECK: Supple, non-tender, no thyromegaly, no masses, no JVD, no bruits. BREAST: Deferred. CHEST: No tenderness, no crepitus, no paradoxical movement, no retractions. LUNGS: Clear, well-ventilated, symmetric, no rales, no wheezing, no rhonchi, no stridor, good breath sounds bilaterally. HEART: Regular rate, regular rhythm, no murmur, no gallops. VASCULAR: No peripheral edema. ABDOMEN: Soft, positive bowel sounds, nondistended, no guarding, nontender, no rebound, no masses no hepatomegaly, no splenomegaly, no Gottlieb's sign, no hernias. RECTAL: Deferred. GENITAL: Deferred. NEUROLOGICAL: Normal speech, gross motor function intact, gross sensory function intact. MUSCULOSKELETAL: Neck nontender, full range of motion, back nontender, full range of motion. EXTREMITIES: Nontender, full range of motion. SKIN: Color pink, dry, no turgor, no rash, no lacerations, no abrasions, no contusions. LYMPHATICS: Deferred. Results Laboratory and Microbiology Lab and Micro Result Laboratory Tests Test 09/21/25 14:36 White Blood Count 7.3 K/uL (4.8-10.8) Red Blood Count 3.55 MIL/uL (4.50-6.20) L Hemoglobin 10.8 g/dL (14.0-18.0) L Hematocrit 33.9 % (42-54) L Mean Corpuscular Volume 95.5 fL (79-99) Mean Corpuscular Hemoglobin 30.4 pg (27.0-33.0) Mean Corpuscular Hemoglobin Concent 31.9 g/dL (32.0-36.0) L Red Cell Distribution Width 14.5 % (11.0-15.5) Platelet Count 212 K/uL (130-400) Mean Platelet Volume 10.7 fL (7.5-10.5) H Immature Granulocyte % (Auto) 0.3 % (0-1) Neutrophils (%) (Auto) 60.9 % (40.0-77.0) Lymphocytes (%) (Auto) 25.7 % (21.0-51.0) Monocytes (%) (Auto) 7.1 % (3.0-13.0) Eosinophils (%) (Auto) 5.6 % (0.0-8.0) Basophils (%) (Auto) 0.4 % (0.0-5.0) Neutrophils # (Auto) 4.4 K/uL (1.8-7.7) Lymphocytes # (Auto) 1.9 K/uL (1.0-4.8) Monocytes # (Auto) 0.5 K/uL (0.1-1.0) Eosinophils # (Auto) 0.41 K/uL (0.00-0.70) Basophils # (Auto) 0.03 K/uL (0.00-0.20) Absolute Immature Granulocyte (auto 0.02 K/uL (0-1) Nucleated Red Blood Cells 0.0 % (0.0-0.19) Prothrombin Time 10.9 SEC (9.6-11.6) Prothromb Time International Ratio 1.03 (0.85-1.15) Activated Partial Thromboplast Time 23.9 SEC (26.3-35.5) L Sodium Level 141 mmol/L (136-145) Potassium Level 4.2 mmol/L (3.5-5.1) Chloride Level 104 mmol/L (101-111) Carbon Dioxide Level 31 mmol/L (21-32) Blood Urea Nitrogen 24 mg/dL (7-18) H Creatinine 1.4 mg/dL (0.5-1.3) H Glomerular Filtration Rate Calc 52 mL/min (>90) Random Glucose 97 mg/dL (70-105) Total Calcium 9.1 mg/dL (8.5-10.1) Magnesium Level 2.00 mg/dL (1.80-2.40) Total Creatine Kinase 43 U/L (21-232) # Troponin I High Sensitivity 9 ng/L (4-75) B-Type Natriuretic Peptide 121 pg/mL (0-100) H Labs Reviewed?: Yes EKG/XRAY/US/CT/MRI EKG Comment 09/21/2025 time 2:10 p.m. Ventricular rate [address] wave elevation or depression X-RAY Comment IMAGING REPORT Signed PATIENT: JEFF GOMEZ MR#: [id number] : 1950 SEX: M AGE: 75 LOCATION: [facility] ORDER 16 STATUS: REG ER REPORT#: [id number] SERVICE 15 REASON: cp ORDERING PHYSICIAN: BEBE BEAR MD PROCEDURE: CXR1VW - CHEST 1VW EXAM: CR Chest, 1 View. CLINICAL HISTORY: cp COMPARISON: None provided. FINDINGS: LUNGS: There is no mass, infiltrate, or acute pulmonary abnormality. PLEURAL SPACES: No pleural effusion or pneumothorax. MEDIASTINUM: Cardiac size and mediastinal contours within normal limits. BONES: No aggressive appearing osseous lesion seen. IMPRESSION: No acute cardiopulmonary pathology is evident. /[place] DICTATED BY: ADAM CEE MD DATE: 09/21/251633 ELECTRONICALLY SIGNED BY: ADAM CEE MD DATE: 09/21/251633 MDM MDM: Differential diagnosis: GERD, chest pain, NSTEMI, ACS, Rationale: Tests considered and ordered secondary to shared decision making include: Previous outside records reviewed: Old ER visits. Risk of complication and/or morbidity or mortality of patient management: None Medications-Per medication reconciliation Need for hospitalization: Patient does not meet criteria for hospitalization. Need for emergency major/minor surgery: No In his is a 75-year-old gentleman coming in complaining of chest pressure. Cardiac workup within normal limits. Patient does has a history of gastritis per family member patient frequently presents with reflux in his being treated for that. Throughout ER visit patient has been stable he remains asymptomatic. Patient's family and patient were educated on diet to modify in order to help with the discomfort as well as medication administration. Patient will be discharged in stable condition with a diagnosis of GERD and gastritis. ED Course Orders Procedure Category Date Status Time Cbc With Differential LAB 09/21/25 Complete 14:16 Prothrombin Time With LAB 09/21/25 Complete INR 14:16 Chest 1vw RAD 09/21/25 Resulted 14:16 12 Lead Ekg Tracing- EKG 09/21/25 Logged Technical 14:16 Magnesium LAB 09/21/25 Complete 14:16 Creatine Kinase, Total LAB 09/21/25 Complete 14:16 Troponin I High LAB 09/21/25 Complete Sensitivity 14:16 Urinalysis Profile LAB 09/21/25 Logged 14:16 Partial LAB 09/21/25 Complete Thromboplastin Time 14:16 Basic Metabolic Panel LAB 09/21/25 Complete 14:16 B-Type Natriuretic LAB 09/21/25 Complete Peptide 14:16 Vital Signs Date Time Temp Pulse Resp B/P (MAP) Pulse Ox O2 Delivery O2 Flow Rate FiO2 09/21/25 14:31 98.1 60 12 124/55 100 Room Air* 0 21 09/21/25 14:14 98.1 61 16 108/65 98 Room Air 0 DX & DISP Disposition: Discharge Departure Impression: Primary Impression: GERD (gastroesophageal reflux disease) Additional Impression: History of constipation Condition: Stable Additional Instructions: You have been reviewed in the emergency department at [facility] after presenting with chest pain. After considering your history, your risk factors, your EKG and your blood test troponins, have been found to be at very low risk less than (1 in 100) of having a major adverse cardiac event (like hea rt attack) in the near future. In the " low risk" group, the risks of doing further tests and treatment as the inpatient outweighs the benefits. In many patients in the low risk group for the test of any sort or unnecessary, however he should discuss this further with his general practitioner who will understand the medical and personal backgrounds better. Because we have never declared you" no risk" we would suggest. 1 returning for medical review if you have further episodes of chest pain/arm pain or other concerning symptoms like dizziness, collapse, palpitations or shortness of breath. 2. Following up with your local doctor who will consider the need for further testing and will also ensure that any modifiable risk factors you may have for heart disease are optimally managed. Patient will be discharged in stable condition at the moment discharge patient states , no chest pain Referrals: YORDAN VENEGAS (PCP) Time of Disposition: 16:04 BEBE BEAR MD Sep 21, 2025 16:03
--- NOTE | 2025-09-21 16:24 | EKG ---
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
--- NOTE | 2025-09-21 18:05 | NUR ---
unable to obtain last set of vitals due to patient being combative , ems arrived for patient to go to [facility], no complications
== END 2025-09-21 18:00 | disposition home or self-care (01) ==
LOC: EDH 14:07
DX: K21.9 Gastro-esophageal reflux disease without esophagitis (principal); E11.9 Type 2 diabetes mellitus without complications; G30.9 Alzheimer's disease, unspecified; I10 Essential (primary) hypertension; I21.9 Acute myocardial infarction, unspecified; I48.91 Unspecified atrial fibrillation; I49.3 Ventricular premature depolarization; Z79.899 Other long term (current) drug therapy; Z87.19 Personal history of other diseases of the digestive system; Z88.0 Allergy status to penicillin
CPT/HCPCS: 99285; 71045; 82550; 83735; 84484; 80048; 83880; 85025; 85610; 85730; 36415; 96372; 93005; J3410